=== PATIENT | female | born 1945 | race Caucasian/White ===

== ENCOUNTER → 2016-03-25 | Outpatient (CLI) | payer BC ==
[~2016-03-25] MED LIST: /PANT40TA PO; AMLO10TA; ASPI81TA63; AVAP150T; CALCIUM LACTATE; CETIRIZINE PO; CHLO125TA PO; CLON1PA TOP; DARV100T; ESTRTAB6; FIBEPOW11 PO; LOPR50TA PO; MAGNESIUM OXIDE; PREMARIVAG VAGINALLY; THERGRAN; TOPI25TA2; TYLE325T5 PO; TYLE650T25 PO; VITAMIN B COMPLE1
--- NOTE | 2016-03-25 14:45 | REP ---
Chest two views HISTORY: Cough Comparison: 12/26/2013 The lungs are clear. The heart is normal in size. The pulmonary vasculature is normal in appearance. The bony structure is intact. IMPRESSION: No acute disease. Signed by Vinicio Carter MD 03/25/2016 02:36 P
[2016-03-25 20:45] LABS: BASO % 0.2 % (0.0-1.0); EOS # 0.2 K/mm3 (0.0-0.50); EOS % 3.5 % (0.0-3.0); LARGE UNSTAINED CELL # 0.1 K/mm3 (0.0-0.4); LARGE UNSTAINED CELL % 1.9 % (0.0-4.0); LYMPH # 1.7 K/mm3 (1.5-4.5); LYMPH % 28.5 % (24.0-44.0); MEAN CORPUSCULAR HEMOGLOBIN 31.9 pg (27.0-33.0); MEAN CORPUSCULAR HGB CONC 34.6 g/dl (32.0-36.5); MEAN CORPUSCULAR VOLUME 92.1 fl (80.0-96.0); MONO # 0.3 K/mm3 (0.0-0.8); NEUTROPHILS # 3.7 K/mm3 (1.8-7.7); PLATELET COUNT, AUTOMATED 232 k/mm3 (150-450); RED CELL DISTRIBUTION WIDTH 12.1 % (11.5-14.5); WHITE BLOOD COUNT 6.1 K/mm3 (4.0-10.0)
[2016-03-25 21:12] LABS: BILIRUBIN,TOTAL 0.6 MG/DL (0.2-1.0); CREATININE FOR GFR 1.06 MG/DL (0.55-1.02); GLOMERULAR FILTRATION RATE 54.6 (>39); POTASSIUM SERUM 4.2 MEQ/L (3.5-5.1)
== END ==
LOC: M ADAMS 14:08
PROVIDERS: ATTEND Physician Assistant
DX: R05 Cough (principal); J18.1 Lobar pneumonia, unspecified organism

== ENCOUNTER 2016-03-26 09:27 | Emergency (ER) | payer BC ==
--- NOTE | 2016-03-26 10:19 | EDDOCDS ---
Physician Documentation [facility] Name: Elizabeth Thibodeaux Age: 71 yrs Sex: Female : 1945 Arrival Date: 03/26/2016 Time: 09:27 Bed TR7 Private MD: Beto Partida MD Disposition: 03/26/16 10:07 Discharged to Home/Self Care. Impression: Acute upper respiratory infections of multiple and unspecified sites. - Condition is Stable. - Discharge Instructions: Cool Mist Vaporizers, Upper Respiratory Infection, Adult, Rxit-kf-Tdpy, Viral Infections, Gqhw-Gw-Sinp. - Prescriptions for benzonatate 200 mg Oral Capsule - take 1 capsule by ORAL route 3 times per day As needed; 30 capsule. azelastine 137 mcg (0.1 %) Nasal Aerosol, [place] - spray 2 spray by INTRANASAL route 2 times per day each nostril; 1 bottle. - Medication Reconciliation, Local Pharmacy Hours form. - Follow up: Beto Partida; When: Call to arrange an appointment; Reason: Further diagnostic work-up, Recheck today's complaints, Continuance of care. - Problem is an ongoing problem. - Symptoms are unchanged. Historical: - Allergies: Doxycycline (Hives); Levaquin (Hives); antidepressants (Unknown); Aspirin (Hives); Lyrica (Swelling); NSAIDS (Hives); Prednisone (rapid heart beat); antibioticsmost (Hives); Singulair (rapid heart beat); Qyimbto-Kow-Iok Reductase Inhibitors (leg cramps); - Home Meds: 1. Calcium + Vitamin D 600 mg calcium- 200 unit Oral tab 2 tab twice a day (Last dose: 03/25/2016) 2. cetirizine 10 mg oral tab 1 tab once daily seasonal 3. chlorthalidone 6.25 mg Oral tab 1 tab once daily (Last dose: 03/25/2016) 4. diphenhydramine HCl 25 mg Oral tab 1 tab 4 times per day as needed (Last dose: 03/26/2016 07:30) 5. irbesartan 300 mg oral tab 1 tab once daily (Last dose: 03/25/2016) 6. magnesium oxide 400 mg Oral cap twice a day (Last dose: 03/25/2016) 7. metoprolol tartrate 25 mg Oral tab 1 tab 2 times per day (Last dose: 03/25/2016) 8. Probiotic 100 billion oral daily (Last dose: 03/25/2016) 9. pantoprazole 40 mg oral TbEC 1 tab once daily (Last dose: 03/25/2016) 10. ProAir HFA 90 mcg/actuation inhalation HFAA 1 puff every 4 hours as needed (Last dose: 03/26/2016 05:00) - PMHx: Arthritis; Asthma; Fibromyalgia; GERD; Hypertension; pinched nerves in neck and back; Colitis; - PSHx: Lumpectomy- Left; Cholecystectomy; - Social history: Smoking status: Patient states former smoker of tobacco. No barriers to communication noted, The patient speaks fluent Cuban. - Family history: Not pertinent. - : The pt / caregiver states he / she is not on anticoagulants. Home medication list is obtained from the patient. - Exposure Risk Screening:: None identified. Vital Signs: 03/26 09:29 BP 153 / 73; Pulse 70; Resp 16; Temp 97.9; Pulse Ox 100% ; Weight 95.71 kg / 211 lbs; elp Height 5 ft. 5 in. (165.10 cm); Pain 4/10; 09:29 Body Mass Index 35.11 (95.71 kg, 165.10 cm) elp MDM: 10:00 Financial registration complete. lg Signatures: Jason Carter RN Susanna Moise RN RN Anahy Hunt, Jesus Reg lg Mayank Gonsalez PA PA btw MTDD
--- NOTE | 2016-03-26 10:19 | EDDOCDS ---
Nurse's Notes [facility] Name: Elizabeth Thibodeaux Age: 71 yrs Sex: Female : 1945 Arrival Date: 03/26/2016 Time: 09:27 Bed TR7 Private MD: Beto Partida MD Diagnosis: Acute upper respiratory infections of multiple and unspecified sites Presentation: 03/26 09:35 Presenting complaint: Patient states: seen at urgent care 1 week ago put on [facility] doxycycline, had rash stopped the doxycycline. went back to urgent care yesterday cxr done question of pneumonia ,put on levaquin last night had rapid heart rate and hives , resolved with benadryl, here today because needs treatment for ? pneumonia and i allergic to most antibiotics. Onset: The symptoms/episode began/occurred yesterday. The patient has a history of a previous allergic reaction. hives. Anaphylaxis evaluation, the patient reports or I have noted the following symptoms which indicate a significant risk of anaphylaxis: no signs or symptoms of anaphylaxis were noted. Adult Sepsis Screening: The patient does not have new or worsening altered mentation. Patient's respiratory rate is less than 22. Systolic blood pressure is greater than 100. Patient has a qSOFA score of 0- Negative Sepsis Screen. Suicide/Homicide risk assessment- the patient denies having any suicidal and/or homicidal ideations and does not present with any other emotional, behavioral or mental health complaints. Status: Patient is not a volunteer services director or dependent. Transition of care: patient was not received from another setting of care. 09:35 Acuity: GILMER Level 3 [facility] 09:35 Method Of Arrival: Walkin/Carried/Asstd [facility] Triage Assessment: 09:45 General: Appears in no apparent distress, Behavior is appropriate for age, pleasant. [facility] Pain: Location: chest Aggravated by cough. Neurological: Level of Consciousness is awake, alert, Oriented to person, place, time. EENT: Reports nasal congestion. Cardiovascular: Chest pain is denied. Respiratory: Reports cough that is non-productive, pain with cough Pain is 4 out of 10 on a pain scale. Derm: Skin is pink, warm & dry. Musculoskeletal: No deficits noted. Historical: - Allergies: Doxycycline (Hives); Levaquin (Hives); antidepressants (Unknown); Aspirin (Hives); Lyrica (Swelling); NSAIDS (Hives); Prednisone (rapid heart beat); antibioticsmost (Hives); Singulair (rapid heart beat); Egszcbt-Yrd-Xtj Reductase Inhibitors (leg cramps); - Home Meds: 1. Calcium + Vitamin D 600 mg calcium- 200 unit Oral tab 2 tab twice a day (Last dose: 03/25/2016) 2. cetirizine 10 mg oral tab 1 tab once daily seasonal 3. chlorthalidone 6.25 mg Oral tab 1 tab once daily (Last dose: 03/25/2016) 4. diphenhydramine HCl 25 mg Oral tab 1 tab 4 times per day as needed (Last dose: 03/26/2016 07:30) 5. irbesartan 300 mg oral tab 1 tab once daily (Last dose: 03/25/2016) 6. magnesium oxide 400 mg Oral cap twice a day (Last dose: 03/25/2016) 7. metoprolol tartrate 25 mg Oral tab 1 tab 2 times per day (Last dose: 03/25/2016) 8. Probiotic 100 billion oral daily (Last dose: 03/25/2016) 9. pantoprazole 40 mg oral TbEC 1 tab once daily (Last dose: 03/25/2016) 10. ProAir HFA 90 mcg/actuation inhalation HFAA 1 puff every 4 hours as needed (Last dose: 03/26/2016 05:00) - PMHx: Arthritis; Asthma; Fibromyalgia; GERD; Hypertension; pinched nerves in neck and back; Colitis; - PSHx: Lumpectomy- Left; Cholecystectomy; - Social history: Smoking status: Patient states former smoker of tobacco. No barriers to communication noted, The patient speaks fluent Khmer. - Family history: Not pertinent. - : The pt / caregiver states he / she is not on anticoagulants. Home medication list is obtained from the patient. - Exposure Risk Screening:: None identified. Screenin:16 Screening information is obtained from the patient. Fall risk: No risks identified. dwg Assistance ADL's: requires no assistance with activities of daily living. Abuse/DV Screen: The patient / caregiver reports he/she is: not in a situation that causes fear, pain or injury. Nutritional screening: No deficits noted. Advance Directives: Currently, there is no health care proxy. There is no active DNR order. There is no living will. There is no Power of Experimental Machinist. Advance directive information has not previously been placed in an [facility] medical record. Further advance directive information is declined. home support is adequate. Assessment: 10:15 The patient / caregiver is instructed regarding the plan of care and ED course. dwg Physical assessment to be completed by RADHA/JUAN. Vital Signs: 09:29 BP 153 / 73; Pulse 70; Resp 16; Temp 97.9; Pulse Ox 100% ; Weight 95.71 kg; Height 5 elp ft. 5 in. (165.10 cm); Pain 4/10; 09:29 Body Mass Index 35.11 (95.71 kg, 165.10 cm) elp Vitals: 09:29 Log In Time N/A - ambulance arrival. elp ED Course: 09:28 Patient visited by Yasmin Matthews PCA. elp 09:28 Patient moved to Waiting elp 09:29 Beto Partida is Private Physician. elp 09:31 Patient visited by Yasmin Matthews PCA. elp 09:31 Patient moved to Pre RCE elp 09:39 Triage Initiated kpj 09:42 Mayank Gonsalez PA is [facility]. btw 09:42 Deepthi Emery MD is Attending Physician. btw 09:47 Patient visited by Mayank Gonsalez PA. btw 09:47 Patient moved to Triage 1 kpj 10:07 Beto Partida is Referral Physician. btw 10:11 Patient moved to TR7 srm 10:18 Patient has correct armband on for positive identification. Adult w/ patient. dwg 10:18 No IV's were initiated during this patient's visit. No procedures done that require dwg assistance. Order Results: There are currently no results for this order. Outcome: 10:07 Discharge ordered by Provider. btw 10:17 Discharge Assessment: Patient awake, alert and oriented x 3. No cognitive and/or dwg functional deficits noted. Patient verbalized understanding of disposition instructions. patient administered narcotics - no. The following High Risk Discharge criteria are identified: None. Discharged to home ambulatory, with family. Condition: good Condition: stable. No special radiology studies were completed. Property sent home with patient. 10:18 Patient left the ED. dwg Signatures: Jason Carter, RN RN dwg Jobson, Susanna, RN RN kpj Carlos, Damaris, RN RN srm Mayank Gonsalez PA PA btw Byron, Yasmin, LEDY CARDIOVASCULAR INVASIVE SPECIALIST elp MTDD
--- NOTE | 2016-03-28 11:19 | EDDOCDS ---
Physician Documentation [facility] Name: Elizabeth Thibodeaux Age: 71 yrs Sex: Female : 1945 Arrival Date: 03/26/2016 Time: 09:27 Bed TR7 Private MD: Beto Partida MD Disposition: 03/26/16 10:07 Discharged to Home/Self Care. Impression: Acute upper respiratory infections of multiple and unspecified sites. - Condition is Stable. - Discharge Instructions: Cool Mist Vaporizers, Upper Respiratory Infection, Adult, Qnex-bt-Wtkn, Viral Infections, Wncn-Ux-Goiq. - Prescriptions for benzonatate 200 mg Oral Capsule - take 1 capsule by ORAL route 3 times per day As needed; 30 capsule. azelastine 137 mcg (0.1 %) Nasal Aerosol, [place] - spray 2 spray by INTRANASAL route 2 times per day each nostril; 1 bottle. - Medication Reconciliation, Local Pharmacy Hours form. - Follow up: Beto Partida; When: Call to arrange an appointment; Reason: Further diagnostic work-up, Recheck today's complaints, Continuance of care. - Problem is an ongoing problem. - Symptoms are unchanged. Historical: - Allergies: Doxycycline (Hives); Levaquin (Hives); antidepressants (Unknown); Aspirin (Hives); Lyrica (Swelling); NSAIDS (Hives); Prednisone (rapid heart beat); antibioticsmost (Hives); Singulair (rapid heart beat); Utgtxvo-Xnu-Put Reductase Inhibitors (leg cramps); - Home Meds: 1. Calcium + Vitamin D 600 mg calcium- 200 unit Oral tab 2 tab twice a day (Last dose: 03/25/2016) 2. cetirizine 10 mg oral tab 1 tab once daily seasonal 3. chlorthalidone 6.25 mg Oral tab 1 tab once daily (Last dose: 03/25/2016) 4. diphenhydramine HCl 25 mg Oral tab 1 tab 4 times per day as needed (Last dose: 03/26/2016 07:30) 5. irbesartan 300 mg oral tab 1 tab once daily (Last dose: 03/25/2016) 6. magnesium oxide 400 mg Oral cap twice a day (Last dose: 03/25/2016) 7. metoprolol tartrate 25 mg Oral tab 1 tab 2 times per day (Last dose: 03/25/2016) 8. Probiotic 100 billion oral daily (Last dose: 03/25/2016) 9. pantoprazole 40 mg oral TbEC 1 tab once daily (Last dose: 03/25/2016) 10. ProAir HFA 90 mcg/actuation inhalation HFAA 1 puff every 4 hours as needed (Last dose: 03/26/2016 05:00) - PMHx: Arthritis; Asthma; Fibromyalgia; GERD; Hypertension; pinched nerves in neck and back; Colitis; - PSHx: Lumpectomy- Left; Cholecystectomy; - Social history: Smoking status: Patient states former smoker of tobacco. No barriers to communication noted, The patient speaks fluent Surinamese. - Family history: Not pertinent. - : The pt / caregiver states he / she is not on anticoagulants. Home medication list is obtained from the patient. - Exposure Risk Screening:: None identified. Vital Signs: 03/26 09:29 BP 153 / 73; Pulse 70; Resp 16; Temp 97.9; Pulse Ox 100% ; Weight 95.71 kg / 211 lbs; elp Height 5 ft. 5 in. (165.10 cm); Pain 4/10; 09:29 Body Mass Index 35.11 (95.71 kg, 165.10 cm) elp MDM: 10:00 Financial registration complete. lg 10:59 [facility] Payment Agreement was scanned into [employer] and attached to record. lg 14:36 T-Sheet-- Draft Copy was scanned into [employer] and attached to record. gb Signatures: Jason Carter RN RN Susanna Sales RN RN kpj Barnhardt, Gloria, Reg Reg gb Anahy Gonzalez, Reg Reg lg Mayank Gonsalez PA PA btw The chart was reviewed and I authenticate all verbal orders and agree with the evaluation and treatment provided.Attachments: 10:59 [facility] Payment Agreement lg 14:36 T-Sheet-- Draft Copy gb Chart Complete MTDD
--- NOTE | 2016-03-28 11:19 | EDDOCDS ---
Nurse's Notes [facility] Name: Elizabeth Thibodeaux Age: 71 yrs Sex: Female : 1945 Arrival Date: 03/26/2016 Time: 09:27 Bed TR7 Private MD: Beto Partida MD Diagnosis: Acute upper respiratory infections of multiple and unspecified sites Presentation: 03/26 09:35 Presenting complaint: Patient states: seen at urgent care 1 week ago put on [facility] doxycycline, had rash stopped the doxycycline. went back to urgent care yesterday cxr done question of pneumonia ,put on levaquin last night had rapid heart rate and hives , resolved with benadryl, here today because needs treatment for ? pneumonia and i allergic to most antibiotics. Onset: The symptoms/episode began/occurred yesterday. The patient has a history of a previous allergic reaction. hives. Anaphylaxis evaluation, the patient reports or I have noted the following symptoms which indicate a significant risk of anaphylaxis: no signs or symptoms of anaphylaxis were noted. Adult Sepsis Screening: The patient does not have new or worsening altered mentation. Patient's respiratory rate is less than 22. Systolic blood pressure is greater than 100. Patient has a qSOFA score of 0- Negative Sepsis Screen. Suicide/Homicide risk assessment- the patient denies having any suicidal and/or homicidal ideations and does not present with any other emotional, behavioral or mental health complaints. Status: Patient is not a hr shared services consultant or dependent. Transition of care: patient was not received from another setting of care. 09:35 Acuity: GILMER Level 3 [facility] 09:35 Method Of Arrival: Walkin/Carried/Asstd [facility] Triage Assessment: 09:45 General: Appears in no apparent distress, Behavior is appropriate for age, pleasant. [facility] Pain: Location: chest Aggravated by cough. Neurological: Level of Consciousness is awake, alert, Oriented to person, place, time. EENT: Reports nasal congestion. Cardiovascular: Chest pain is denied. Respiratory: Reports cough that is non-productive, pain with cough Pain is 4 out of 10 on a pain scale. Derm: Skin is pink, warm & dry. Musculoskeletal: No deficits noted. Historical: - Allergies: Doxycycline (Hives); Levaquin (Hives); antidepressants (Unknown); Aspirin (Hives); Lyrica (Swelling); NSAIDS (Hives); Prednisone (rapid heart beat); antibioticsmost (Hives); Singulair (rapid heart beat); Qrctqea-Sda-Cer Reductase Inhibitors (leg cramps); - Home Meds: 1. Calcium + Vitamin D 600 mg calcium- 200 unit Oral tab 2 tab twice a day (Last dose: 03/25/2016) 2. cetirizine 10 mg oral tab 1 tab once daily seasonal 3. chlorthalidone 6.25 mg Oral tab 1 tab once daily (Last dose: 03/25/2016) 4. diphenhydramine HCl 25 mg Oral tab 1 tab 4 times per day as needed (Last dose: 03/26/2016 07:30) 5. irbesartan 300 mg oral tab 1 tab once daily (Last dose: 03/25/2016) 6. magnesium oxide 400 mg Oral cap twice a day (Last dose: 03/25/2016) 7. metoprolol tartrate 25 mg Oral tab 1 tab 2 times per day (Last dose: 03/25/2016) 8. Probiotic 100 billion oral daily (Last dose: 03/25/2016) 9. pantoprazole 40 mg oral TbEC 1 tab once daily (Last dose: 03/25/2016) 10. ProAir HFA 90 mcg/actuation inhalation HFAA 1 puff every 4 hours as needed (Last dose: 03/26/2016 05:00) - PMHx: Arthritis; Asthma; Fibromyalgia; GERD; Hypertension; pinched nerves in neck and back; Colitis; - PSHx: Lumpectomy- Left; Cholecystectomy; - Social history: Smoking status: Patient states former smoker of tobacco. No barriers to communication noted, The patient speaks fluent Mongolian. - Family history: Not pertinent. - : The pt / caregiver states he / she is not on anticoagulants. Home medication list is obtained from the patient. - Exposure Risk Screening:: None identified. Screenin:16 Screening information is obtained from the patient. Fall risk: No risks identified. dwg Assistance ADL's: requires no assistance with activities of daily living. Abuse/DV Screen: The patient / caregiver reports he/she is: not in a situation that causes fear, pain or injury. Nutritional screening: No deficits noted. Advance Directives: Currently, there is no health care proxy. There is no active DNR order. There is no living will. There is no Power of Processing Manager. Advance directive information has not previously been placed in an [facility] medical record. Further advance directive information is declined. home support is adequate. Assessment: 10:15 The patient / caregiver is instructed regarding the plan of care and ED course. dwg Physical assessment to be completed by RADHA/JUAN. Vital Signs: 09:29 BP 153 / 73; Pulse 70; Resp 16; Temp 97.9; Pulse Ox 100% ; Weight 95.71 kg; Height 5 elp ft. 5 in. (165.10 cm); Pain 4/10; 09:29 Body Mass Index 35.11 (95.71 kg, 165.10 cm) elp Vitals: 09:29 Log In Time N/A - ambulance arrival. elp ED Course: 09:28 Patient visited by Yasmin Matthews PCA. elp 09:28 Patient moved to Waiting elp 09:29 Beto Partida is Private Physician. elp 09:31 Patient visited by Yasmin Matthews PCA. elp 09:31 Patient moved to Pre RCE elp 09:39 Triage Initiated kp 09:42 [facility] btw 09:42 Deepthi Emery MD is Attending Physician. btw 09:47 Patient visited by Mayank Gonsalez PA. btw 09:47 Patient moved to Triage 1 kpj 10:07 Beto Partida is Referral Physician. btw 10:11 Patient moved to TR7 srm 10:18 Patient has correct armband on for positive identification. Adult w/ patient. dwg 10:18 No IV's were initiated during this patient's visit. No procedures done that require dwg assistance. 10:59 [facility] Payment Agreement was scanned into [employer] and attached to record. lg 14:36 T-Sheet-- Draft Copy was scanned into [employer] and attached to record. gb Order Results: There are currently no results for this order. Outcome: 10:07 Discharge ordered by Provider. btw 10:17 Discharge Assessment: Patient awake, alert and oriented x 3. No cognitive and/or dwg functional deficits noted. Patient verbalized understanding of disposition instructions. patient administered narcotics - no. The following High Risk Discharge criteria are identified: None. Discharged to home ambulatory, with family. Condition: good Condition: stable. No special radiology studies were completed. Property sent home with patient. 10:18 Patient left the ED. [facility] Signatures: Jason Carter RN RN Susanna Morel RN RN kpj Michelson, Staci, RN RN [facility] [place], Ivon, Reg Reg gb Ganmary carmen, Anahy, Reg Reg lg Mayank Gonsalez PA PA btw Yasmin Matthews, LEDY INSOLE BUFFER elp Chart Complete MTDD
--- NOTE | 2016-03-28 11:19 | EDDOCDS ---
Physician Documentation [facility] Name: Elizabeth Thibodeaux Age: 71 yrs Sex: Female : 1945 Arrival Date: 03/26/2016 Time: 09:27 Bed TR7 Private MD: Beto Partida MD Disposition: 03/26/16 10:07 Discharged to Home/Self Care. Impression: Acute upper respiratory infections of multiple and unspecified sites. - Condition is Stable. - Discharge Instructions: Cool Mist Vaporizers, Upper Respiratory Infection, Adult, Yibu-gc-Hgdv, Viral Infections, Erzf-Xx-Buab. - Prescriptions for benzonatate 200 mg Oral Capsule - take 1 capsule by ORAL route 3 times per day As needed; 30 capsule. azelastine 137 mcg (0.1 %) Nasal Aerosol, [place] - spray 2 spray by INTRANASAL route 2 times per day each nostril; 1 bottle. - Medication Reconciliation, Local Pharmacy Hours form. - Follow up: Beto Partida; When: Call to arrange an appointment; Reason: Further diagnostic work-up, Recheck today's complaints, Continuance of care. - Problem is an ongoing problem. - Symptoms are unchanged. Historical: - Allergies: Doxycycline (Hives); Levaquin (Hives); antidepressants (Unknown); Aspirin (Hives); Lyrica (Swelling); NSAIDS (Hives); Prednisone (rapid heart beat); antibioticsmost (Hives); Singulair (rapid heart beat); Adojruc-Iqb-Hmm Reductase Inhibitors (leg cramps); - Home Meds: 1. Calcium + Vitamin D 600 mg calcium- 200 unit Oral tab 2 tab twice a day (Last dose: 03/25/2016) 2. cetirizine 10 mg oral tab 1 tab once daily seasonal 3. chlorthalidone 6.25 mg Oral tab 1 tab once daily (Last dose: 03/25/2016) 4. diphenhydramine HCl 25 mg Oral tab 1 tab 4 times per day as needed (Last dose: 03/26/2016 07:30) 5. irbesartan 300 mg oral tab 1 tab once daily (Last dose: 03/25/2016) 6. magnesium oxide 400 mg Oral cap twice a day (Last dose: 03/25/2016) 7. metoprolol tartrate 25 mg Oral tab 1 tab 2 times per day (Last dose: 03/25/2016) 8. Probiotic 100 billion oral daily (Last dose: 03/25/2016) 9. pantoprazole 40 mg oral TbEC 1 tab once daily (Last dose: 03/25/2016) 10. ProAir HFA 90 mcg/actuation inhalation HFAA 1 puff every 4 hours as needed (Last dose: 03/26/2016 05:00) - PMHx: Arthritis; Asthma; Fibromyalgia; GERD; Hypertension; pinched nerves in neck and back; Colitis; - PSHx: Lumpectomy- Left; Cholecystectomy; - Social history: Smoking status: Patient states former smoker of tobacco. No barriers to communication noted, The patient speaks fluent Cape Verdean. - Family history: Not pertinent. - : The pt / caregiver states he / she is not on anticoagulants. Home medication list is obtained from the patient. - Exposure Risk Screening:: None identified. Vital Signs: 03/26 09:29 BP 153 / 73; Pulse 70; Resp 16; Temp 97.9; Pulse Ox 100% ; Weight 95.71 kg / 211 lbs; elp Height 5 ft. 5 in. (165.10 cm); Pain 4/10; 09:29 Body Mass Index 35.11 (95.71 kg, 165.10 cm) elp MDM: 10:00 Financial registration complete. lg 10:59 [facility] Payment Agreement was scanned into [employer] and attached to record. lg 14:36 T-Sheet-- Draft Copy was scanned into [employer] and attached to record. gb Signatures: Jason Carter RN RN Susanna Sales RN RN kpj Barnhardt, Gloria, Reg Reg gb Anahy Gonzalez, Reg Reg lg Mayank Gonsalez PA PA btw The chart was reviewed and I authenticate all verbal orders and agree with the evaluation and treatment provided.Attachments: 10:59 [facility] Payment Agreement lg 14:36 T-Sheet-- Draft Copy gb Chart Complete MTDD
== END 2016-03-26 10:18 | disposition home or self-care (01) ==
LOC: M ED 09:27
DX: J06.9 Acute upper respiratory infection, unspecified (principal); I10 Essential (primary) hypertension; J45.909 Unspecified asthma, uncomplicated; M19.90 Unspecified osteoarthritis, unspecified site; M79.7 Fibromyalgia; K21.9 Gastro-esophageal reflux disease without esophagitis; M54.12 Radiculopathy, cervical region; M54.16 Radiculopathy, lumbar region; Z79.899 Other long term (current) drug therapy; Z88.1 Allergy status to other antibiotic agents; Z88.8 Allergy status to other drugs, medicaments and biological substances; Z88.6 Allergy status to analgesic agent

== ENCOUNTER → 2016-04-29 | Outpatient (REF) | payer BC ==
[2016-04-30 12:05] LABS: ALBUMIN 4.67 GM/DL (3.29-5.55); ALBUMIN % 58.4 % (55.8-66.1)
== END ==
LOC: M LAB REF 17:06
PROVIDERS: ATTEND Internal Medicine Medical Oncology
DX: D47.2 Monoclonal gammopathy (principal)

== ENCOUNTER → 2016-06-19 | Outpatient (CLI) | payer BC ==
--- NOTE | 2016-06-19 15:33 | REPMRS ---
Patient History The patient states she had a clinical breast exam in 06/15 Patient is postmenopausal and is nulliparous. No known family history of cancer. Benign excisional biopsy of the left breast. Digital Woman Screen Mammo: June 19, 2016 - Exam #: [id number] Bilateral CC and MLO view(s) were taken. Technologist: Inna Lauren, Technologist Prior study comparison: November 07, 2013, right breast digital mammo diagnostic unilateral, performed at [facility]. October 24, 2013, digital woman screen mammo performed at [facility]. February 03, 2012, digital woman screen mammo performed at [facility]. FINDINGS: There are scattered fibroglandular densities. There has been no change in the appearance of the mammogram from the prior studies. There is a mild amount of scattered fibroglandular density which is fairly symmetric. There is no interval development of dominant mass, architectural distortion, or clustered microcalcification suggestive of malignancy. ASSESSMENT: BI-RADS/ACR category 1 mammogram. Negative. Recommendation Routine screening mammogram in 1 year (for women over age 40). This mammogram was interpreted with the aid of an FDA-approved computer-aided dectection system. Electronically Signed By: Lavelle Zambrano MD 06/19/16 [id number]
== END ==
LOC: M WHC 13:30
PROVIDERS: ATTEND Nurse Practitioner Family
DX: Z12.31 Encounter for screening mammogram for malignant neoplasm of breast (principal); Z78.0 Asymptomatic menopausal state; Z92.89 Personal history of other medical treatment

== ENCOUNTER → 2016-06-26 | Outpatient (CLI) | payer BC ==
--- NOTE | 2016-06-26 13:47 | REP ---
LEFT ANKLE, FOUR VIEWS: HISTORY: Pain. There is no acute fracture or dislocation. The joint space is normal in appearance. Soft tissue swelling is present. IMPRESSION: There is no acute fracture or dislocation. Signed by Vinicio Carter MD 06/26/2016 01:52 P
== END ==
LOC: M ADAMS 13:15
PROVIDERS: ATTEND Family Medicine
DX: M25.572 Pain in left ankle and joints of left foot (principal)

== ENCOUNTER → 2016-09-29 | Outpatient (REF) | payer BC ==
[2016-09-29 12:45] LABS: MEAN CORPUSCULAR HEMOGLOBIN 32.4 pg (27.0-33.0); MEAN CORPUSCULAR HGB CONC 33.5 g/dl (32.0-36.5); MEAN CORPUSCULAR VOLUME 96.7 fl (80.0-96.0); RED CELL DISTRIBUTION WIDTH 12.7 % (11.5-14.5); WHITE BLOOD COUNT 5.7 K/mm3 (4.0-10.0)
[2016-09-29 12:54] LABS: ALBUMIN 3.8 GM/DL (3.2-5.2); ALBUMIN/GLOBULIN RATIO 1.15 (1.00-1.93); BILIRUBIN,TOTAL 0.8 MG/DL (0.2-1.0); CALCIUM LEVEL 9.5 MG/DL (8.8-10.2); CREATININE FOR GFR 1.17 MG/DL (0.55-1.02); GLOMERULAR FILTRATION RATE 48.7 (>39); POTASSIUM SERUM 4.4 MEQ/L (3.5-5.1); TOTAL PROTEIN 7.1 GM/DL (6.4-8.2)
== END ==
LOC: M SFHCADAM 09:57
PROVIDERS: ATTEND Family Medicine
DX: F43.21 Adjustment disorder with depressed mood (principal); I11.9 Hypertensive heart disease without heart failure; E78.4 Other hyperlipidemia

== ENCOUNTER → 2016-11-05 | Outpatient (CLI) | payer BC ==
--- NOTE | 2016-11-05 15:33 | REP ---
Clinical: Pain and swelling . Technique: Balderrama scale and color Doppler evaluation using linear high frequency transducer. Findings: Ultrasound examination of the left lower extremity deep venous structures from the common femoral vein to the popliteal vein demonstrates normal compressibility flow and wave patterns in response to respiration and augmentation. There is no evidence for deep venous thrombosis. Impression: No evidence for deep venous thrombosis. Signed by Robby Norton MD 11/05/2016 03:24 P
== END ==
LOC: M RAD 15:02
PROVIDERS: ATTEND Family Medicine
DX: M79.89 Other specified soft tissue disorders (principal); M79.662 Pain in left lower leg

== ENCOUNTER → 2017-01-18 | Outpatient (REF) | payer BC ==
[~2017-01-18] MED LIST changes: +Holter Monitor
[2017-01-18 22:08] LABS: MEAN CORPUSCULAR HGB CONC 33.9 g/dl (32.0-36.5); MEAN CORPUSCULAR VOLUME 91.3 fl (80.0-96.0); PLATELET COUNT, AUTOMATED 228 10^3/uL (150-450); RED CELL DISTRIBUTION WIDTH 11.9 % (11.5-14.5)
[2017-01-18 22:32] LABS: ALBUMIN 4.3 GM/DL (3.2-5.2); ALBUMIN/GLOBULIN RATIO 1.43 (1.00-1.93); ALKALINE PHOSPHATASE 78 U/L (45-117); ALT/SGPT 41 U/L (12-78); ANION GAP 5 MEQ/L (8-16); AST/SGOT 30 U/L (7-37); BLOOD UREA NITROGEN 10 MG/DL (7-18); CALCIUM LEVEL 9.6 MG/DL (8.8-10.2); CARBON DIOXIDE LEVEL 33 MEQ/L (21-32); CHLORIDE LEVEL 93 MEQ/L (98-107); CREATININE FOR GFR 1.54 MG/DL (0.55-1.02); GLOMERULAR FILTRATION RATE 35.4 (>39); GLUCOSE, FASTING 77 MG/DL (83-110); MAGNESIUM LEVEL 2.1 MG/DL (1.8-2.4); SODIUM LEVEL 131 MEQ/L (136-145); TOTAL PROTEIN 7.3 GM/DL (6.4-8.2)
[2017-01-18 22:35] LABS: ERYTHROCYTE SEDIMENTATION RATE 8 mm/hr (0-30)
[2017-01-19 10:19] LABS: VITAMIN B12 LEVEL 1327 PG/ML (247-911)
[2017-01-23 14:10] LABS: F002-IgE Milk < 0.10 kU/L (Class 0); F004-IgE Wheat 0.12 kU/L (Class 0/I); F013-IgE Peanut < 0.10 kU/L (Class 0); F014-IgE Soybean < 0.10 kU/L (Class 0); F026-IgE Pork < 0.10 kU/L (Class 0); F027-IgE Beef < 0.10 kU/L (Class 0); F245-IgE Egg, Whole < 0.10 kU/L (Class 0); FX02-IgE Food Mix (Sea Foods) Negative (.)
== END ==
LOC: M LAB REF 10:04
PROVIDERS: ATTEND Internal Medicine Gastroenterology
DX: R10.12 Left upper quadrant pain (principal); R10.84 Generalized abdominal pain; K44.9 Diaphragmatic hernia without obstruction or gangrene; K31.84 Gastroparesis; K29.70 Gastritis, unspecified, without bleeding; R11.2 Nausea with vomiting, unspecified; K52.9 Noninfective gastroenteritis and colitis, unspecified; E55.9 Vitamin D deficiency, unspecified

== ENCOUNTER 2017-01-19 15:49 | Emergency (ER) | payer BC ==
[~2017-01-19] VITALS: Ht 162.6 cm; Wt 93.2 kg
[~2017-01-19 15:49] MED LIST changes: -Holter Monitor
[2017-01-19 17:27] LABS: MAGNESIUM LEVEL 2.1 MG/DL (1.8-2.4)
[2017-01-19] MEDS ORDERED: Holter Monitor (18:02)
[2017-01-19 18:07] VITALS: BP 115/64
--- NOTE | 2017-01-20 09:29 | ECGEPIP ---
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
== END 2017-01-19 18:23 | disposition home or self-care (01) ==
LOC: EDBD 15:49 → M ED 15:49
DX: R55 Syncope and collapse (principal); R00.1 Bradycardia, unspecified; M79.7 Fibromyalgia; G47.33 Obstructive sleep apnea (adult) (pediatric); K58.9 Irritable bowel syndrome, unspecified; N18.3 Chronic kidney disease, stage 3 (moderate); F95.9 Tic disorder, unspecified; Z88.8 Allergy status to other drugs, medicaments and biological substances; Z88.0 Allergy status to penicillin; Z88.1 Allergy status to other antibiotic agents; Z88.6 Allergy status to analgesic agent; Z88.2 Allergy status to sulfonamides; Z79.899 Other long term (current) drug therapy

== ENCOUNTER → 2017-02-17 | Outpatient (CLI) | payer BC ==
[~2017-02-17] MED LIST changes: +Holter Monitor
--- NOTE | 2017-02-18 06:52 | REP ---
PET/CT: HISTORY: Nodule left lower lobe of the lung. COMPARISONS: Comparison CT study [facility] dated February 08, 2017. The nodule measured 1.2 cm in greatest diameter. TECHNIQUE: 1 hour 28 minutes following the intravenous injection of a 10.5 mCi dose of F-18 FDG, three-dimensional PET scintigraphy is acquired from the skull base to the proximal thighs. Triplanar noncontrast CT scanning is acquired through the same anatomic range for attenuation correction, and image registration with scan parameters optimized to minimize radiation exposure to the patient. PET scintigraphy and CT datasets were fused and displayed on a workstation with multiplanar and projection display capability. PET/CT FINDINGS: The peripheral pleural-based nodule in the left lower lobe shows hypermetabolic uptake on today's PET scintigraphy. Maximum standard uptake value is 5.6. No other abnormal hypermetabolic uptake is seen in the thorax. Head and neck soft tissues are unremarkable. In the abdomen and pelvis there is normal hepatic, splenic, gastrointestinal and genitourinary FDG accumulation. No adrenal abnormality is seen. The gallbladder is surgically absent. No abnormal abdominal or pelvic hypermetabolic uptake is seen. IMPRESSION: The left lower lobe lung nodule is hypermetabolic. This must be considered suspicious for a lung malignancy. No other abnormal hypermetabolic uptake is seen. Signed by Peter Zambrano MD 02/18/2017 08:11 A
== END ==
LOC: M PLARAD 11:26
PROVIDERS: ATTEND Internal Medicine Gastroenterology
DX: R91.8 Other nonspecific abnormal finding of lung field (principal); Z88.8 Allergy status to other drugs, medicaments and biological substances
CPT/HCPCS: 78815; A9552

== ENCOUNTER → 2017-03-11 | Outpatient (REF) | payer BC ==
[2017-03-15 11:04] LABS: ALBUMIN 4.03 GM/DL (3.29-5.55); ALBUMIN % 57.6 % (55.8-66.1); ALPHA-1-GLOBULIN % 4.9 % (2.9-4.9); ALPHA-1-GLOBULINS 0.34 GM/DL (0.17-0.41); ALPHA-2-GLOBULINS 0.78 GM/DL (0.42-0.99); ALPHA-2-GLOBULINS % 11.1 % (7.1-11.8); BETA-1-GLOBULINS 0.44 GM/DL (0.28-0.60); BETA-1-GLOBULINS % 6.3 % (4.7-7.2); BETA-2-GLOBULINS % 5.7 % (3.2-6.5); GAMMA GLOBULIN % 14.4 % (11.1-18.8); GAMMA GLOBULINS 1.01 GM/DL (0.65-1.58)
== END ==
LOC: M LAB REF 18:18
DX: D47.2 Monoclonal gammopathy (principal)
CPT/HCPCS: 84165

== ENCOUNTER → 2017-03-18 | Outpatient (REF) | payer BC ==
[2017-03-18 19:37] LABS: HEMATOCRIT 36.5 % (36.0-47.0); MEAN CORPUSCULAR HEMOGLOBIN 32.3 pg (27.0-33.0); MEAN CORPUSCULAR HGB CONC 32.9 g/dl (32.0-36.5); MEAN CORPUSCULAR VOLUME 98.1 fl (80.0-96.0); PLATELET COUNT, AUTOMATED 225 10^3/uL (150-450); RED BLOOD COUNT 3.72 10^6/uL (4.00-5.40); RED CELL DISTRIBUTION WIDTH 13.2 % (11.5-14.5); WHITE BLOOD COUNT 6.8 10^3/uL (4.0-10.0)
[2017-03-18 19:50] LABS: ALBUMIN 3.9 GM/DL (3.2-5.2); ALBUMIN/GLOBULIN RATIO 1.11 (1.00-1.93); ALKALINE PHOSPHATASE 76 U/L (45-117); ALT/SGPT 25 U/L (12-78); AST/SGOT 22 U/L (7-37); BILIRUBIN,DIRECT 0.3 MG/DL (0.0-0.2); BILIRUBIN,TOTAL 1.2 MG/DL (0.2-1.0); LIPASE 279 U/L (73-393); TOTAL PROTEIN 7.4 GM/DL (6.4-8.2); TRIGLYCERIDES LEVEL 112 MG/DL (<150)
[2017-03-20 14:11] LABS: ANTINUCLEAR ANTIBODIES DIRECT Negative (Negative)
[2017-03-23 00:06] LABS: IgG SUBCLASS 4(ONLY) 35 mg/dL (2-96)
== END ==
LOC: M LABDRWAD 19:12
DX: R11.0 Nausea (principal); R10.84 Generalized abdominal pain
CPT/HCPCS: 83690

== ENCOUNTER → 2017-06-28 | Outpatient (REF) | payer BC ==
[2017-06-28 13:33] LABS: APPEARANCE, URINE CLEAR (CLEAR); BACTERIA, URINE AUTO NEGATIVE (NEGATIVE); BILIRUBIN, URINE AUTO NEGATIVE (NEGATIVE); BLOOD, URINE BLOOD NEGATIVE (NEGATIVE); COLOR, URINE YELLOW (YELLOW); GLUCOSE, URINE (UA) AUTO NEGATIVE (NEGATIVE); KETONE, URINE AUTO NEGATIVE (NEGATIVE); LEUKOCYTE ESTERASE, URINE AUTO NEGATIVE (NEGATIVE); NITRITE, URINE AUTO NEGATIVE (NEGATIVE); PROTEIN, URINE AUTO NEGATIVE (NEGATIVE); RBC, URINE AUTO 0 /HPF (0-3); SPECIFIC GRAVITY URINE AUTO 1.011 (1.002-1.035); SQUAMOUS EPITHELIAL CELL UR AU 0 /HPF (0-6); UROBILINOGEN, URINE AUTO 0.2 mg/dL (0.0-2.0); WBC, URINE AUTO 0 /HPF (0-3)
== END ==
LOC: M LAB REF 12:55
DX: R10.84 Generalized abdominal pain (principal); R93.3 Abnormal findings on diagnostic imaging of other parts of digestive tract; R30.0 Dysuria; K21.9 Gastro-esophageal reflux disease without esophagitis
CPT/HCPCS: 81001

== ENCOUNTER → 2017-10-15 | Outpatient (CLI) | payer BC | LOC: M WHC 13:33 | DX: Z12.31 Encounter for screening mammogram for malignant neoplasm of breast (principal) | CPT/HCPCS: 77067 ==

== ENCOUNTER → 2017-12-06 | Outpatient (CLI) | payer BC ==
[2017-12-06 19:52] LABS: ANION GAP 5 MEQ/L (8-16); BLOOD UREA NITROGEN 16 MG/DL (7-18); CALCIUM LEVEL 8.8 MG/DL (8.8-10.2); CARBON DIOXIDE LEVEL 30 MEQ/L (21-32); CHLORIDE LEVEL 108 MEQ/L (98-107); CREATININE FOR GFR 1.36 MG/DL (0.55-1.30); GLOMERULAR FILTRATION RATE 40.8 (>39); GLUCOSE, FASTING 88 MG/DL (70-100); POTASSIUM SERUM 4.2 MEQ/L (3.5-5.1); SODIUM LEVEL 143 MEQ/L (136-145)
== END ==
LOC: M ADAMS 15:19
DX: H02.423 Myogenic ptosis of bilateral eyelids (principal)
CPT/HCPCS: 80048

== ENCOUNTER → 2018-02-27 | Outpatient (REF) | payer BC | LOC: M LAB REF 09:32 | PROVIDERS: ATTEND Physician Assistant Medical | DX: M54.5 Low back pain (principal) ==

== ENCOUNTER → 2018-03-29 | Outpatient (CLI) | payer MEDICARE ==
[2018-03-29 19:56] LABS: BASO % 0.6 % (0.0-1.0); EOS # 0.4 10^3/uL (0.0-0.50); EOS % 6.2 % (0.0-3.0); HEMATOCRIT 40.6 % (36.0-47.0); HEMOGLOBIN 13.6 g/dl (12.0-15.5); LYMPH # 2.2 10^3/uL (1.5-4.5); LYMPH % 32.7 % (24.0-44.0); MEAN CORPUSCULAR HEMOGLOBIN 30.6 pg (27.0-33.0); MEAN CORPUSCULAR HGB CONC 33.5 g/dl (32.0-36.5); MEAN CORPUSCULAR VOLUME 91.4 fl (80.0-96.0); MONO # 0.4 10^3/uL (0.0-0.8); MONO % 6.4 % (0.0-5.0); NEUTROPHILS # 3.6 10^3/uL (1.8-7.7); NEUTROPHILS % 53.7 % (36.0-66.0); PLATELET COUNT, AUTOMATED 259 10^3/uL (150-450); RED BLOOD COUNT 4.44 10^6/uL (4.00-5.40); WHITE BLOOD COUNT 6.7 10^3/uL (4.0-10.0)
== END ==
LOC: M LABDRWAD 14:02
PROVIDERS: ATTEND Physician Assistant Medical
DX: J20.9 Acute bronchitis, unspecified (principal)

== ENCOUNTER → 2018-03-29 | Outpatient (CLI) | payer MEDICARE ==
--- NOTE | 2018-03-29 15:45 | REP ---
Clinical: Acute bronchitis. Technique: PA and lateral. Comparison: 03/25/2016. Findings: A surgical clip is identified in the periphery of the left mid lung zone and associated subtle nodular density is suggested. Mediastinum and cardiac silhouette are normal. Remainder of lung hall are clear. No consolidation, effusion, or pneumothorax. Skeletal structures are intact. Impression: Subtle nodular density at the site of surgical clip may warrant followup CT. No further acute mediastinal or pleuroparenchymal process appreciated. Electronically Signed by Robby Norton MD 03/29/2018 03:37 P
== END ==
LOC: M ADAMS 13:59
PROVIDERS: ATTEND Physician Assistant Medical
DX: J20.9 Acute bronchitis, unspecified (principal)

== ENCOUNTER → 2018-04-06 | Outpatient (REF) | payer MEDICARE | LOC: M SFHCADAM 11:34 | PROVIDERS: ATTEND Family Medicine | DX: K55.1 Chronic vascular disorders of intestine (principal); E78.5 Hyperlipidemia, unspecified; M79.7 Fibromyalgia; Z53.9 Procedure and treatment not carried out, unspecified reason ==

== ENCOUNTER → 2018-04-13 | Outpatient (REF) | payer MEDICARE ==
[2018-04-13 20:09] LABS: HEMATOCRIT 38.9 % (36.0-47.0); HEMOGLOBIN 12.5 g/dl (12.0-15.5); MEAN CORPUSCULAR HEMOGLOBIN 30.9 pg (27.0-33.0); MEAN CORPUSCULAR HGB CONC 32.1 g/dl (32.0-36.5); MEAN CORPUSCULAR VOLUME 96.3 fl (80.0-96.0); PLATELET COUNT, AUTOMATED 248 10^3/uL (150-450); RED BLOOD COUNT 4.04 10^6/uL (4.00-5.40); WHITE BLOOD COUNT 6.1 10^3/uL (4.0-10.0)
[2018-04-13 20:14] LABS: ALBUMIN 3.8 GM/DL (3.2-5.2); BILIRUBIN,TOTAL 0.7 MG/DL (0.2-1.0); CALCIUM LEVEL 9.1 MG/DL (8.8-10.2); CHOLESTEROL RISK RATIO 4.923 (<5); CREATININE FOR GFR 1.28 MG/DL (0.55-1.30); FREE T4 0.84 NG/DL (0.76-1.46); GLOMERULAR FILTRATION RATE 43.6 (>39); POTASSIUM SERUM 4.1 MEQ/L (3.5-5.1); THYROID STIMULATING HORMONE 1.69 uIU/ML (0.358-3.740); TOTAL PROTEIN 7.4 GM/DL (6.4-8.2)
[2018-04-13 20:18] LABS: TOTAL 25(OH) VITAMIN D 37.1 NG/ML (30.0-100.0)
== END ==
LOC: M SFHCADAM 14:52
PROVIDERS: ATTEND Family Medicine
DX: J32.9 Chronic sinusitis, unspecified (principal); I11.9 Hypertensive heart disease without heart failure; E78.5 Hyperlipidemia, unspecified; M79.7 Fibromyalgia; E55.9 Vitamin D deficiency, unspecified; Z68.37 Body mass index [BMI] 37.0-37.9, adult

== ENCOUNTER → 2018-05-11 | Outpatient (REF) | payer MEDICARE ==
[2018-05-11 12:20] LABS: BASO % 0.6 % (0.0-1.0); EOS # 0.3 10^3/uL (0.0-0.50); EOS % 5.4 % (0.0-3.0); HEMATOCRIT 37.6 % (36.0-47.0); HEMOGLOBIN 12.5 g/dl (12.0-15.5); LYMPH # 1.3 10^3/uL (1.5-4.5); LYMPH % 26.9 % (24.0-44.0); MEAN CORPUSCULAR HEMOGLOBIN 31.2 pg (27.0-33.0); MEAN CORPUSCULAR HGB CONC 33.2 g/dl (32.0-36.5); MEAN CORPUSCULAR VOLUME 93.8 fl (80.0-96.0); MONO # 0.4 10^3/uL (0.0-0.8); MONO % 7.9 % (0.0-5.0); NEUTROPHILS # 2.9 10^3/uL (1.8-7.7); PLATELET COUNT, AUTOMATED 228 10^3/uL (150-450); RED BLOOD COUNT 4.01 10^6/uL (4.00-5.40); WHITE BLOOD COUNT 4.8 10^3/uL (4.0-10.0)
[2018-05-11 12:59] LABS: ERYTHROCYTE SEDIMENTATION RATE 22 mm/hr (0-30)
[2018-05-11 13:16] LABS: C REACTIVE PROTEIN QUANTITATIV < 0.30 MG/DL (0.00-0.30); RHEUMATOID FACTOR QUANT < 10.0 IU/ML (<15.0)
[2018-05-14 00:06] LABS: ANA (HEP2) Negative (.); CYCLIC CITRULLINATED PEPTIDE 5 units (0-19); Lyme Disease IgG/IgM Antibodie <0.91 ISR (0.00-0.90); Lyme Disease IgM Ab Quantitati <0.80 index (0.00-0.79)
== END ==
LOC: M SFHCADAM 10:14
PROVIDERS: ATTEND Family Medicine
DX: M25.60 Stiffness of unspecified joint, not elsewhere classified (principal)

== ENCOUNTER → 2018-05-11 | Outpatient (CLI) | payer MEDICARE ==
--- NOTE | 2018-05-11 11:40 | REP ---
BILATERAL KNEES, NINE VIEWS: HISTORY: Arthritis. RIGHT KNEE: There is no acute fracture or dislocation. There is moderate narrowing of the medial knee joint space. There is minimal narrowing of the lateral knee joint space and mild narrowing of the lateral patellofemoral joint space. An osteophyte is present on the femur. IMPRESSION: Degenerative change as described above. LEFT KNEE: There is no acute fracture or dislocation. There is moderate narrowing of the medial knee joint space and lateral patellofemoral joint space. Osteophytes are present on the femur and tibia. IMPRESSION: Degenerative change as described above. Electronically Signed by Vinicio Carter MD 05/11/2018 11:47 A
== END ==
LOC: M ADAMS 10:06
PROVIDERS: ATTEND Family Medicine
DX: M17.2 Bilateral post-traumatic osteoarthritis of knee (principal)

== ENCOUNTER → 2018-06-09 | Outpatient (CLI) | payer MEDICARE ==
[~2018-06-09] MED LIST changes: -/PANT40TA PO; -CLON1PA TOP; +CLON1PAT TOP; +PROT1TAB2 PO
== END ==
LOC: M SMT 14:53
PROVIDERS: ATTEND Allergy & Immunology Allergy
DX: Z91.018 Allergy to other foods (principal)

== ENCOUNTER → 2018-07-22 | Outpatient (REF) | payer MEDICARE | LOC: M LAB REF 08:47 | PROVIDERS: ATTEND Physician Assistant Medical | DX: R30.0 Dysuria (principal) ==

== ENCOUNTER → 2018-11-08 | Outpatient (REF) | payer MEDICARE ==
[2018-11-16 00:06] LABS: CALPROTECTIN STOOL 117 ug/g (0-120); FATS NEUTRAL Normal (.); FATS TOTAL Normal (.)
== END ==
LOC: M LAB REF 15:18
PROVIDERS: ATTEND Internal Medicine Gastroenterology
DX: R19.7 Diarrhea, unspecified (principal); K44.9 Diaphragmatic hernia without obstruction or gangrene; R10.12 Left upper quadrant pain; K21.9 Gastro-esophageal reflux disease without esophagitis; K57.30 Diverticulosis of large intestine without perforation or abscess without bleeding; E55.9 Vitamin D deficiency, unspecified

== ENCOUNTER → 2018-12-06 | Outpatient (REF) | payer MEDICARE ==
[2018-12-06 17:43] LABS: CALCIUM LEVEL 9.6 MG/DL (8.8-10.2); CHOLESTEROL RISK RATIO 4.366 (<5); CREATININE FOR GFR 1.47 MG/DL (0.55-1.30); GLOMERULAR FILTRATION RATE 37.2 (>39); POTASSIUM SERUM 4.4 MEQ/L (3.5-5.1); TOTAL PROTEIN 7.7 GM/DL (6.4-8.2)
[2018-12-06 17:48] LABS: HEMATOCRIT 41.8 % (36.0-47.0); HEMOGLOBIN 13.7 g/dl (12.0-15.5); MEAN CORPUSCULAR HEMOGLOBIN 31.6 pg (27.0-33.0); MEAN CORPUSCULAR HGB CONC 32.8 g/dl (32.0-36.5); MEAN CORPUSCULAR VOLUME 96.3 fl (80.0-96.0); PLATELET COUNT, AUTOMATED 274 10^3/uL (150-450); RED BLOOD COUNT 4.34 10^6/uL (4.00-5.40); WHITE BLOOD COUNT 5.1 10^3/uL (4.0-10.0)
== END ==
LOC: M SFHCADAM 11:38
PROVIDERS: ATTEND Family Medicine
DX: M79.7 Fibromyalgia (principal); E78.49 Other hyperlipidemia

== ENCOUNTER → 2018-12-06 | Outpatient (REF) | payer MEDICARE ==
[2018-12-06 17:38] LABS: CREATININE FOR GFR 1.48 MG/DL (0.55-1.30); GLOMERULAR FILTRATION RATE 36.9 (>39); MAGNESIUM LEVEL 2.2 MG/DL (1.8-2.4)
[2018-12-06 17:50] LABS: TOTAL 25(OH) VITAMIN D 52.4 NG/ML (30.0-100.0)
== END ==
LOC: M LABDRWAD 15:47
PROVIDERS: ATTEND Internal Medicine Gastroenterology
DX: R10.12 Left upper quadrant pain (principal); R19.7 Diarrhea, unspecified; K44.9 Diaphragmatic hernia without obstruction or gangrene; K57.30 Diverticulosis of large intestine without perforation or abscess without bleeding; E55.9 Vitamin D deficiency, unspecified; Z79.899 Other long term (current) drug therapy

== ENCOUNTER → 2019-03-13 | Outpatient (REF) | payer MEDICARE ==
[2019-03-13 14:38] LABS: CALCIUM LEVEL 9.3 MG/DL (8.8-10.2); CREATININE FOR GFR 1.28 MG/DL (0.55-1.30); GLOMERULAR FILTRATION RATE 43.5 (>39); POTASSIUM SERUM 4.1 MEQ/L (3.5-5.1)
== END ==
LOC: M SFHCADAM 11:17
PROVIDERS: ATTEND Family Medicine
DX: N18.3 Chronic kidney disease, stage 3 (moderate) (principal)

== ENCOUNTER → 2019-03-16 | Outpatient (CLI) | payer MEDICARE ==
--- NOTE | 2019-03-16 18:21 | REP ---
LUMBOSACRAL SPINE: Five views of the lumbosacral spine performed. There is no fracture or dislocation. There is normal lumbar lordosis with no spondylolysis or spondylolisthesis. There is mild diffuse spurring. There is mild disc space narrowing and subchondral sclerosis at all levels. There is a more moderate degree of disc space narrowing at L5-S1. Vacuum phenomenon is seen at L4-5. There is sclerosis and spurring at the facets of L4-5 and L5-S1. There is slight curvature of the upper lumbar spine convex to the right and lower lumbar spine convex to the left. Posterior elements are intact. Metallic clips are seen in the upper abdomen. IMPRESSION: Degenerative changes as above. Electronically Signed by Jason Balderrama MD 03/16/2019 07:16 P
== END ==
LOC: M ADAMS 16:04
PROVIDERS: ATTEND Family Medicine
DX: M51.37 Other intervertebral disc degeneration, lumbosacral region (principal); M54.5 Low back pain

== ENCOUNTER → 2019-10-04 | Outpatient (REF) | payer MEDICARE ==
[2019-11-02 10:48] LABS: HEMATOCRIT 41.7 % (36.0-47.0); HEMOGLOBIN 13.6 g/dl (12.0-15.5); MEAN CORPUSCULAR HEMOGLOBIN 31.5 pg (27.0-33.0); MEAN CORPUSCULAR HGB CONC 32.6 g/dl (32.0-36.5); MEAN CORPUSCULAR VOLUME 96.5 fl (80.0-96.0); PLATELET COUNT, AUTOMATED 259 10^3/uL (150-450); RED BLOOD COUNT 4.32 10^6/uL (4.00-5.40); WHITE BLOOD COUNT 5.8 10^3/uL (4.0-10.0)
[2019-11-18 12:15] LABS: ALBUMIN 4.1 GM/DL (3.2-5.2); BILIRUBIN,TOTAL 0.9 MG/DL (0.2-1.0); CALCIUM LEVEL 9.4 MG/DL (8.8-10.2); CHOLESTEROL RISK RATIO 4.705 (<5); CREATININE FOR GFR 1.35 MG/DL (0.55-1.30); FREE T4 0.91 NG/DL (0.76-1.46); GLOMERULAR FILTRATION RATE 40.9 (>39); POTASSIUM SERUM 4.5 MEQ/L (3.5-5.1); THYROID STIMULATING HORMONE 1.77 uIU/ML (0.358-3.740); TOTAL PROTEIN 7.7 GM/DL (6.4-8.2)
== END ==
LOC: M SFHCADAM 11:28
PROVIDERS: ATTEND Family Medicine
DX: I13.0 Hypertensive heart and chronic kidney disease with heart failure and stage 1 through stage 4 chronic kidney disease, or unspecified chronic kidney disease (principal); M79.7 Fibromyalgia; N18.3 Chronic kidney disease, stage 3 (moderate); E78.5 Hyperlipidemia, unspecified; I50.9 Heart failure, unspecified

== ENCOUNTER → 2020-03-07 | Outpatient (REF) | payer MEDICARE ==
[2020-03-07 17:28] LABS: CALCIUM LEVEL 9.2 MG/DL (8.8-10.2); CREATININE FOR GFR 1.29 MG/DL (0.55-1.30); POTASSIUM SERUM 4.2 MEQ/L (3.5-5.1)
== END ==
LOC: M SFHCADAM 14:44
PROVIDERS: ATTEND Family Medicine
DX: R60.0 Localized edema (principal); R06.00 Dyspnea, unspecified

== ENCOUNTER → 2020-03-07 | Outpatient (REF) | payer MEDICARE ==
[2020-03-07 17:19] LABS: HEMATOCRIT 35.4 % (36.0-47.0); HEMOGLOBIN 11.5 g/dl (12.0-15.5); MEAN CORPUSCULAR HGB CONC 32.5 g/dl (32.0-36.5); MEAN CORPUSCULAR VOLUME 101.7 fl (80.0-96.0); PLATELET COUNT, AUTOMATED 266 10^3/uL (150-450); RED BLOOD COUNT 3.48 10^6/uL (4.00-5.40); WHITE BLOOD COUNT 6.1 10^3/uL (4.0-10.0)
[2020-03-07 17:46] LABS: ALBUMIN 3.9 GM/DL (3.2-5.2); BILIRUBIN,TOTAL 0.9 MG/DL (0.2-1.0); CALCIUM LEVEL 9.3 MG/DL (8.8-10.2); CREATININE FOR GFR 1.34 MG/DL (0.55-1.30); GLOMERULAR FILTRATION RATE 41.2 (>39); MAGNESIUM LEVEL 2.2 MG/DL (1.8-2.4); POTASSIUM SERUM 4.4 MEQ/L (3.5-5.1); THYROID STIMULATING HORMONE 1.54 uIU/ML (0.358-3.740); TOTAL PROTEIN 6.9 GM/DL (6.4-8.2)
== END ==
LOC: M LABDRWAD 16:23
PROVIDERS: ATTEND Internal Medicine Gastroenterology
DX: E87.6 Hypokalemia (principal); R19.7 Diarrhea, unspecified; K44.9 Diaphragmatic hernia without obstruction or gangrene; K21.9 Gastro-esophageal reflux disease without esophagitis; K31.84 Gastroparesis; E56.9 Vitamin deficiency, unspecified

== ENCOUNTER → 2020-04-04 | Outpatient (CLI) | payer MEDICARE ==
--- NOTE | 2020-04-04 17:45 | REP ---
INDICATION: TIA COMPARISON: Comparison study January 15, 2008.. TECHNIQUE: Real-time ultrasound evaluation and duplex Doppler interrogation of the extracranial carotid vasculature is performed. FINDINGS: Antegrade flow is observed in both vertebral arteries. Right carotid: The right common carotid artery shows diffuse intimal thickening but is otherwise unremarkable. There minimal soft plaquing in the right carotid bulb and proximal ICA on two-dimensional scanning. Color flow and spectral Doppler interrogation are unremarkable on the right. Velocity chart right carotid: Right CCA PSV: 109 cm/S Right ICA PSV: 105 cm/S Right ICA EDV: 26 cm/S Right ECA PSV: 91 cm/S Right ICA/CCA ratio: 0.96 Left carotid: The left common carotid artery shows diffuse intimal thickening but is otherwise unremarkable. There is minimal soft plaquing in the left carotid bulb and proximal ICA on two-dimensional scanning. Color flow and spectral Doppler interrogation are unremarkable on the left. Velocity chart left carotid: Left CCA PSV: 97 cm/S Left ICA PSV: 93 cm/S Left ICA EDV: 25 cm/S Left ECA PSV: 141 cm/S Left ICA/CCA ratio: 0.96 IMPRESSION: Less than 50% category narrowing in the right internal carotid artery by Doppler velocity criteria. Less than 50% category narrowing in the left ICA by Doppler velocity criteria. <Electronically signed by Lavelle Zambrano > 04/04/20 [id number]
== END ==
LOC: M RAD 16:03
PROVIDERS: ATTEND Family Medicine
DX: G45.9 Transient cerebral ischemic attack, unspecified (principal)

== ENCOUNTER → 2020-06-11 | Outpatient (REF) | payer MEDICARE ==
[2020-06-11 18:47] LABS: CREATININE FOR GFR 1.29 MG/DL (0.55-1.30); POTASSIUM SERUM 4.9 MEQ/L (3.5-5.1)
[2020-06-11 18:48] LABS: CALCIUM LEVEL 9.8 MG/DL (8.8-10.2); MAGNESIUM LEVEL 2.4 MG/DL (1.8-2.4)
== END ==
LOC: M SFHCADAM 12:16
PROVIDERS: ATTEND Family Medicine
DX: I11.9 Hypertensive heart disease without heart failure (principal); N18.30 Chronic kidney disease, stage 3 unspecified

== ENCOUNTER → 2020-09-30 | Outpatient (REF) | payer MEDICARE ==
[2020-09-30 18:51] LABS: BASO % 0.4 % (0.0-1.0); EOS # 0.2 10^3/uL (0.0-0.5); EOS % 2.3 % (0.0-3.0); HEMATOCRIT 36.9 % (36.0-47.0); LYMPH # 1.7 10^3/uL (1.5-5.0); LYMPH % 25.1 % (24.0-44.0); MEAN CORPUSCULAR HEMOGLOBIN 31.1 pg (27.0-33.0); MEAN CORPUSCULAR HGB CONC 32.5 g/dl (32.0-36.5); MEAN CORPUSCULAR VOLUME 95.6 fl (80.0-96.0); MONO # 0.4 10^3/uL (0.0-0.8); MONO % 6.2 % (2.0-8.0); NEUTROPHILS # 4.5 10^3/uL (1.5-8.5); NEUTROPHILS % 65.6 % (36.0-66.0); PLATELET COUNT, AUTOMATED 235 10^3/uL (150-450); RED BLOOD COUNT 3.86 10^6/uL (4.00-5.40); WHITE BLOOD COUNT 6.9 10^3/uL (4.0-10.0)
[2020-09-30 19:21] LABS: PERCENT SATURATION 18.6 % (13.2-45.0)
== END ==
LOC: M LABDRWAD 18:06
PROVIDERS: ATTEND Orthopaedic Surgery
DX: Z01.818 Encounter for other preprocedural examination (principal); M17.11 Unilateral primary osteoarthritis, right knee; M25.561 Pain in right knee

== ENCOUNTER 2020-10-14 18:13 | Inpatient (IN) | payer MEDICARE ==
[~2020-10-14] VITALS: Ht 163.8 cm; Wt 95.0 kg
[2020-10-14] MEDS ORDERED: GI COCKTAIL 50ML BTL(HYOSCYAMINE/MAALOX/LIDOCAINE VISCOUS)(1:3:1) PO ONE (20:15)
[2020-10-14] MEDS ORDERED: PANTOPRAZOLE 40MG VIAL (C9113 PER 1) IV ONE (20:15)
[2020-10-14] MEDS ORDERED: ISOVUE-370 76% 100ML VIAL As Ordered ONE (20:57)
[2020-10-14 21:01] LABS: BASO % 0.3 % (0.0-1.0); EOS # 0.1 10^3/uL (0.0-0.5); EOS % 1.6 % (0.0-3.0); HEMATOCRIT 36.5 % (36.0-47.0); HEMOGLOBIN 13.3 g/dl (12.0-15.5); LYMPH # 1.6 10^3/uL (1.5-5.0); LYMPH % 23.5 % (24.0-44.0); MEAN CORPUSCULAR HEMOGLOBIN 31.7 pg (27.0-33.0); MEAN CORPUSCULAR HGB CONC 36.4 g/dl (32.0-36.5); MEAN CORPUSCULAR VOLUME 87.1 fl (80.0-96.0); MONO # 0.6 10^3/uL (0.0-0.8); MONO % 9.3 % (2.0-8.0); NEUTROPHILS # 4.5 10^3/uL (1.5-8.5); NEUTROPHILS % 64.9 % (36.0-66.0); PLATELET COUNT, AUTOMATED 210 10^3/uL (150-450); RED BLOOD COUNT 4.19 10^6/uL (4.00-5.40); WHITE BLOOD COUNT 6.9 10^3/uL (4.0-10.0)
[2020-10-14 21:33] LABS: ALBUMIN 4.4 GM/DL (3.2-5.2); ALT/SGPT 29 U/L (12-78); BILIRUBIN,DIRECT 0.3 MG/DL (0.0-0.2); BILIRUBIN,TOTAL 1.4 MG/DL (0.2-1.0); BLOOD UREA NITROGEN 19 MG/DL (7-18); CALCIUM LEVEL 9.5 MG/DL (8.8-10.2); CARBON DIOXIDE LEVEL 27 MEQ/L (21-32); CHLORIDE LEVEL 80 MEQ/L (98-107); CK-MB VALUE MASS 1.9 NG/ML (<3.6); CPK CREATINE PHOSPHOKINASE 160 U/L (26-192); CREATININE FOR GFR 1.45 MG/DL (0.55-1.30); GLOMERULAR FILTRATION RATE 37.6 (>39); GLUCOSE, FASTING 73 MG/DL (70-100); LIPASE 303 U/L (73-393); MB/CK RELATIVE INDEX 1.19 (< OR =4); POTASSIUM SERUM 3.5 MEQ/L (3.5-5.1); SODIUM LEVEL 119 MEQ/L (136-145); TOTAL PROTEIN 7.7 GM/DL (6.4-8.2); TROPONIN I < 0.02 NG/ML (< 0.10)
[2020-10-14 23:43] LABS: OSMOLALITY URINE 155 MOSM/KG (50-1400)
[2020-10-14 23:48] LABS: OSMOLALITY SERUM 245 MOSM/KG (280-301)
[2020-10-14 23:55] LABS: SODIUM,RANDOM URINE 30 MEQ/L
--- NOTE | 2020-10-14 23:57 | REPVR ---
PROCEDURE INFORMATION: Exam: CT Abdomen And Pelvis With Contrast Exam date and time: 10/14/2020 11:07 PM Age: 75 years old Clinical indication: Abdominal pain; Localized; Left upper quadrant (luq); Additional info: Luq/epigastric pain TECHNIQUE: Imaging protocol: Computed tomography of the abdomen and pelvis with contrast. Radiation optimization: All CT scans at this facility use at least one of these dose optimization techniques: automated exposure control; mA and/or kV adjustment per patient size (includes targeted exams where dose is matched to clinical indication); or iterative reconstruction. Contrast material: ISOVUE 370; Contrast volume: 100 ml; Contrast route: INTRAVENOUS (IV); COMPARISON: PT PET/CT Skull/mid thigh 02/17/2017 1:33 PM FINDINGS: Lungs: Nodule in the lateral left lower lobe measuring 14 x 15 x 23 mm with a tapering tail which extends centrally toward the left hilum and has associated coarse calcifications consistent with scar or granuloma. This appears slightly increased and better defined since 02/17/2017 and may reflect treated malignancy. Liver: The liver attenuation is 81 Hounsfield units and the spleen is 108 Hounsfield units. Gallbladder and bile ducts: Status post cholecystectomy. Pancreas: Normal. No ductal dilation. Spleen: Normal. No splenomegaly. Adrenal glands: Nodule of the left adrenal measuring 9-10 mm. Kidneys and ureters: Normal. No hydronephrosis. Stomach and bowel: There are a few colonic diverticula without diverticulitis. Appendix: There are no changes of appendicitis. A normal appendix is not seen although there may be an appendiceal stump. Intraperitoneal space: Unremarkable. No free air. No significant fluid collection. Vasculature: There is minimal atherosclerotic calcification of the abdominal aorta. Lymph nodes: Unremarkable. No enlarged lymph nodes. Urinary bladder: Unremarkable as visualized. Reproductive: Unremarkable as visualized. Bones/joints: Unremarkable. No acute fracture. Soft tissues: Unremarkable. IMPRESSION: 1. Old granuloma or scar in the left lower lobe laterally. Treated malignancy is not excluded. 2. Status post cholecystectomy. 3. There are a few colonic diverticula without diverticulitis. 4. Otherwise negative CT abdomen/pelvis. Electronically signed by: Pepe Pena On 10/14/2020 23:57:09 PM
[2020-10-15 02:18] LABS: RSV AMPLIFICATION NEGATIVE (NEGATIVE)
--- NOTE | 2020-10-15 02:30 | REPVR ---
PROCEDURE INFORMATION: Exam: CT Head Without Contrast Exam date and time: 10/15/2020 1:58 AM Age: 75 years old Clinical indication: Dizziness; Additional info: Hyponatremia, dizzy, balance incoordination TECHNIQUE: Imaging protocol: Computed tomography of the head without contrast. Radiation optimization: All CT scans at this facility use at least one of these dose optimization techniques: automated exposure control; mA and/or kV adjustment per patient size (includes targeted exams where dose is matched to clinical indication); or iterative reconstruction. COMPARISON: CT Head without contrast 05/06/2015 12:54 PM FINDINGS: Brain: There is mild patchy low attenuation of deep white matter. The sulci are within normal limits. Cerebral ventricles: No ventriculomegaly. Paranasal sinuses: Visualized sinuses are unremarkable. No fluid levels. Mastoid air cells: Visualized mastoid air cells are well aerated. Bones/joints: Unremarkable. No acute fracture. Soft tissues: Unremarkable. IMPRESSION: 1. Mild chronic ischemic white matter change. 2. Otherwise negative noncontrast head CT which is essentially unchanged from 05/06/2015. Electronically signed by: Pepe Pena On 10/15/2020 02:29:44 AM
[2020-10-15] MEDS ORDERED: NS 1,000 ML IV ONE (03:00)
[2020-10-15 03:06] VITALS: BP 157/68
--- NOTE | 2020-10-15 03:26 | HPEPDOC ---
General Date of Admission Oct 15, 2020 at 00:32 Date of Service: Oct 15, 2020 Chief Complaint abdominal pain Source: Patient, Family () History of Present Illness Elizabeth Thibodeaux is a 75-year-old female with significant history of Gastritis, esophagitis, hypertension, migraines, fibromyalgia, OSAuses CPAP, obesity, OA bilateral knees arrives with chief complaint of abdominal pain. Patient describes the generalized abdominal pain as moderate worsening the past 3 days. She reports that she has had a history of gastritis and it did feel as a similar upset. Patient reports she is abdominal pain-free after GI cocktail. However, patient also describes several other generalized complaints including weakness, instability with gait, dizziness, chills, fatigue, loss of appetite, episodes of loose stool and headaches. Pt denies goodwin, sinus congestion, sore throat, productive cough, sob, palpitations, chest pain, n/v, sensory changes or syncope. Home Medications Scheduled Calcium Carbonate/Vitamin D3 (Calcium 500-Vit D3 200 Tablet) 1 Each Tablet, 1 TAB PO BID, (Reported) Cyanocobalamin (Vitamin B-12) (Vitamin B-12) 500 Mcg Tablet, 500 MCG PO QPM, (Reported) TAKES AT DINNERTIME Digestive 8/L.acidoph/Pectin (Digestive Enzymes Tablet) 1 Each Tablet, 1 TAB PO WM, (Reported) Esomeprazole Magnesium (Nexium) 40 Mg Capsule.dr, 40 MG PO BID, (Reported) Inulin (Fiber Gummies) 2 Gm Tab.chew, 2 CHW PO DAILY, (Reported) Inulin (Fiber Gummies) 2 Gm Tab.chew, 1 CHW PO QPM, (Reported) TAKES AT DINNERTIME L.acidoph/L.bulg/B.bif/S.therm (Bacid Caplet) 1 Each Tablet, 1 TAB PO BID, (Reported) Magnesium Oxide (Magnesium Oxide) 400 Mg Tablet, 400 MG PO BID, (Reported) Metoprolol Tartrate (Metoprolol Tartrate) 25 Mg Tablet, 25 MG PO BID, (Reported) Multivitamins (Thera M Plus Tablet) 1 Each Tablet, 1 TAB PO DAILY, (Reported) Vitamin B Complex (Vitamin B Complex) 1 Each Tablet, 1 TAB PO DAILY, (Reported) Wheat Dextrin (Benefiber) 1 Each Powd.pack, 1 POW PO BID, (Reported) [Glutenease] , 1 TAB PO WM, (Reported) Scheduled PRN Albuterol Sulfate (Proair Hfa) 8.5 Gm Hfa.aer.ad, 2 PUFF INH QID PRN for SHORTNESS OF BREATH, (Reported) Amlodipine Besylate (Norvasc) 5 Mg Tablet, 5 MG PO BIDP PRN for sbp>150 or dbp>90 Diphenhydramine HCl (Benadryl) 25 Mg Capsule, 25 MG PO Q6H PRN for ALLERGY SYMPTOMS, (Reported) Fluticasone Propionate (Flonase Allergy Relief) 9.9 Ml [place].susp, 1 SPRAY NA BID PRN for NASAL CONGESTION, (Reported) Levocetirizine Dihydrochloride (Levocetirizine Dihydrochloride) 5 Mg Tablet, 5 MG PO DAILY PRN for ALLERGY SYMPTOMS, (Reported) Allergies Coded Allergies: NSAIDS (Non-Steroidal Anti-Inflamma (Verified Allergy, Unknown, HIVES, 10/14/20) Penicillins (Verified Allergy, Unknown, HIVES, 10/14/20) Mnywzfw-Xtr-Bxb Reductase Inhibitor (Verified Allergy, Unknown, 10/14/20) Sulfa (Sulfonamide Antibiotics) (Verified Allergy, Unknown, HIVES, 10/14/20) aspirin (Verified Allergy, Unknown, HIVES, 10/14/20) azithromycin (Verified Allergy, Unknown, 10/14/20) ciprofloxacin (Verified Allergy, Unknown, 10/14/20) doxycycline (Verified Allergy, Unknown, 10/14/20) iodine (Verified Allergy, Unknown, 10/14/20) levofloxacin (Verified Allergy, Unknown, 10/14/20) naproxen (Verified Allergy, Unknown, HIVES, 10/14/20) sucralfate (Verified Allergy, Unknown, 10/14/20) Past Medical History Medical History Gastritis, esophagitis, GERD, hypertension, migraines, fibromyalgia, OSAuses CPAP, obesity, OA bilateral knees right worse than left Surgical History Cholecystectomy, breast biopsy, Family History Significant Family History: No pertinent family hx Social History * Smoker: Denies Alcohol: Denies Drugs: denies Recent Travel/Sick Contacts: Denies: Recent travel, Recent sick contacts Psychosocial History: No 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 A-FIB/CHADSVASC A-FIB History Current/History of A-Fib/PAF?: No Current PO Anticoag Therapy: No Review of Systems Constitutional: Reports: Chills, Fatigue; Denies: Fever, Night Sweats Eyes: Denies: Pain, Vision change ENT: Denies: Head Aches, Ear Pain, Dysphagia Skin: Denies: Rash, Lesions, Breakdown Pulmonary: Denies: Dyspnea, Cough Cardiovascular: Reports: Lt Headedness; Denies: Chest Pain, Palpitations, Orthopnea, Paroxysmal Noc. Dyspnea Gastrointestinal: Reports: Abdominal Pain, Diarrhea; Denies: Nausea, Vomiting Genitourinary: Denies: Dysuria, Frequency, Incontinence, Retention Hematologic: Denies: Bruising, Bleeding Excessively Musculoskeletal: Denies: Neck Pain, Back Pain, Joint Pain, Muscle Pain, Spasms Neurological: Reports: Weakness, Incoordination; Denies: Numbness, Change in speech, Confusion Psych: Reports: Mood Normal; Denies: Depression, Memory Issues Physical Examination General Exam: Positive: Alert, Cooperative, No Acute Distress Eye Exam: Positive: PERRLA, Conjunctiva & lids normal, EOMI; Negative: Sclera icteric ENT Exam: Positive: Atraumatic, Mucous membr. moist/pink, Pharynx Normal Neck Exam: Positive: Supple; Negative: JVD, thyromegaly Chest Exam: Positive: Clear to auscultation, Normal air movement Heart Exam: Positive: Rate Normal, Regular Rhythm, Normal S1, Normal S2; Negative: Murmurs, Rubs Telemetry: Positive: No significant arrhythmia Abdomen Exam: Positive: Normal bowel sounds, Soft, Tenderness; Negative: Hepatospenomegaly Extremity Exam: Positive: Normal pulses; Negative: Clubbing, Cyanosis, Edema Skin Exam: Positive: Nl turgor and temperature; Negative: Breakdown, Lesion Neuro Exam: Positive: Normal Speech, Cranial Nerves 3-12 NL, Reflexes 2+ Psych Exam: Positive: Mental status NL, Mood NL, Oriented x 3 Vital Signs Vital Signs Date Time Temp Pulse Resp B/P (MAP) Pulse Ox O2 Delivery O2 Flow Rate FiO2 10/15/20 02:00 62 14 150/69 (96) 99 Room Air 10/14/20 20:42 98.1 Laboratory Data Labs 24H Laboratory Tests 2 10/14/20 19:58: Immature Granulocyte % (Auto) 0.4, Neutrophils (%) (Auto) 64.9, Lymphocytes (%) (Auto) 23.5L, Monocytes (%) (Auto) 9.3H, Eosinophils (%) (Auto) 1.6, Basophils (%) (Auto) 0.3, Neutrophils # (Auto) 4.5, Lymphocytes # (Auto) 1.6, Monocytes # (Auto) 0.6, Eosinophils # (Auto) 0.1, Basophils # (Auto) 0.0, Nucleated Red Blood Cells % (auto) 0.0, Urine Color STRAW, Urine Appearance CLEAR, Urine pH 7.0, Urine Specific [place] 1.003, Urine Protein NEGATIVE, Urine Glucose (UA) NEGATIVE, Urine Ketones TRACEH, Urine Blood NEGATIVE, Urine Nitrite NEGATIVE, Urine Bilirubin NEGATIVE, Urine Urobilinogen 0.2, Urine Leukocyte Esterase NEGATIVE, Urine WBC (Auto) 0, Urine RBC (Auto) 0, Urine Hyaline Casts (Auto) 0, Urine Bacteria (Auto) NEGATIVE, Urine Squamous Epithelial Cells 0, Urine Sperm (Auto) , Anion Gap 12, Glomerular Filtration Rate 37.6L, Osmolality 245L, Lactic Acid Level 0.8, Calcium Level 9.5, Total Bilirubin 1.4H, Direct Bilirubin 0.3H, Aspartate Amino Transf (AST/SGOT) 27, Alanine Aminotransferase (ALT/SGPT) 29, Alkaline Phosphatase 81, Total Creatine Kinase 160, Creatine Kinase MB 1.9, Creatine Kinase MB Relative Index 1.19, Troponin I < 0.02, Total Protein 7.7, Albumin 4.4, Albumin/Globulin Ratio 1.3, Lipase 303 10/14/20 20:46: POC Glucose (Misc Panel) 80, POC Sodium (Misc Panel) 118*L, POC Potassium (Misc Panel) 3.7, POC Chloride (Misc Panel) 78L, POC Total CO2 (Misc Panel) 26.0, POC Blood Urea Nitrogen (Misc Panel 20, POC Ionized Calcium (Misc Panel) 4.4L, POC C reatinine (Misc Panel) 1.7H, POC Hematocrit (Misc Panel) 41.0 10/14/20 23:25: Urine Osmolality 155, Urine Random Sodium 30 10/15/20 01:34: Coronavirus (COVID-19)(PCR) NEGATIVE, Influenza Type A (RT-PCR) NEGATIVE, Influenza Type B (RT-PCR) NEGATIVE, Respiratory Syncytial Virus (PCR) NEGATIVE CBC/BMP Laboratory Tests 10/14/20 19:58 Assessment/Plan 1. Dizziness/weakness secondary to symptomatic hyponatremia: CT head nonacute. Sodium 119. -Urine sodium and serum Osmo -1 L normal saline -BMP every 4 hours-caution to not overcorrect more than 8 points in 24 hours -Hold home medicine chlorthalidone -A.m. lab 2. Abdominal pain in setting of chronic gastritis: CT abdomen pelvis nonacute. Symptom management/supportive care. Continue PPI. Monitor for increased GI symptoms for further work-up. 3. Mild SUKUMAR: Previous creatinine 1.29 and patient arrives today 1.45. In setting of gastritis/loose stool episodes and low sodium with chlorthalidone home med- likely pre renal. Patient will receive hydration given above. A.m. labs. Avoid nephrotoxins as able 4. Hypertension: Uncontrolled. Could be elevated given the stress of the ER. However since holding a few of her blood pressure agents given above monitor and consider increased dosages of other medications versus additional ones that will not affect her sodium level. 5. OA and fibromyalgia: Symptom management/supportive care. Avoid nephrotoxins. 6. Obesity: Complicates care DVT: SCD CODE STATUS full Dispo: Home Plan / VTE VTE Prophylaxis Ordered?: Yes SOPHIE BLACK NP Oct 15, 2020 02:30 MARIBELL SHAFER MD Oct 22, 2020 06:29
[2020-10-15 03:30] LABS: MAGNESIUM LEVEL 2.4 MG/DL (1.8-2.4)
[2020-10-15 04:44] LABS: HEMATOCRIT 36.2 % (36.0-47.0); HEMOGLOBIN 13.1 g/dl (12.0-15.5); MEAN CORPUSCULAR HEMOGLOBIN 31.6 pg (27.0-33.0); MEAN CORPUSCULAR HGB CONC 36.2 g/dl (32.0-36.5); MEAN CORPUSCULAR VOLUME 87.4 fl (80.0-96.0); PLATELET COUNT, AUTOMATED 210 10^3/uL (150-450); RED BLOOD COUNT 4.14 10^6/uL (4.00-5.40); WHITE BLOOD COUNT 5.9 10^3/uL (4.0-10.0)
[2020-10-15 05:08] LABS: CALCIUM LEVEL 8.6 MG/DL (8.8-10.2); CREATININE FOR GFR 1.43 MG/DL (0.55-1.30); GLOMERULAR FILTRATION RATE 38.2 (>39); POTASSIUM SERUM 3.6 MEQ/L (3.5-5.1)
[2020-10-15] MEDS ORDERED: LEVOTAB10 PO (05:47)
[2020-10-15] MEDS ORDERED: IRBE300T7 PO (05:47)
[2020-10-15] MEDS ORDERED: VITA500T41 PO (05:47)
[2020-10-15] MEDS ORDERED: NEXI40CA PO (05:47)
[2020-10-15] MEDS ORDERED: BENE1POW5 PO (05:47)
[2020-10-15] MEDS ORDERED: BACITAB PO (05:47)
[2020-10-15] MEDS ORDERED: VITATAB73 PO (05:47)
[2020-10-15] MEDS ORDERED: OYST500T92 PO (05:47)
[2020-10-15] MEDS ORDERED: BENA25CA4 PO (05:47)
[2020-10-15] MEDS ORDERED: PROAAER10 INH (05:47)
[2020-10-15] MEDS ORDERED: MAGN400T3 PO (05:47)
[2020-10-15] MEDS ORDERED: VITMTA PO (05:47)
[2020-10-15] MEDS ORDERED: CVS1CHW13 PO ×2 (05:47)
[2020-10-15] MEDS ORDERED: DIGETAB4 PO (05:47)
[2020-10-15] MEDS ORDERED: FLON1SPR (05:47)
[2020-10-15] MEDS ORDERED: [UNRECOGNIZED DRUG - OTHER] PO (05:47)
[2020-10-15] MEDS ORDERED: METO25TA4 PO (05:47)
[2020-10-15] MEDS ORDERED: CHLO25TA PO (05:47)
[2020-10-15] MEDS ORDERED: HOME MED LIST COMPLETE! XX SCH (05:50)
[2020-10-15 06:00] VITALS: BP 137/63
[2020-10-15] MEDS: ACETAMINOPHEN TAB 650MG DOSE (2X325MG) PO PRN (06:04)
[2020-10-15] MEDS ORDERED: FLUTICASONE PROP 0.05% NASAL SPRAY 16 GM (FLONASE) PRN (06:10)
[2020-10-15] MEDS ORDERED: ALBUTEROL 90 MCG/ACT 8GM HFA INHALER INH PRN (06:10)
--- NOTE | 2020-10-15 07:42 | ECGEPIP ---
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
[2020-10-15] MEDS ORDERED: PREVNAR 13 VACCINE SYRINGE IM ONE (09:00)
[2020-10-15] MEDS ORDERED: PANTOPRAZOLE 40MG TAB (PROTONIX) PO SCH (09:00)
[2020-10-15] MEDS: MULTIVITAMINS/MINERALS THERAP 1 TAB PO SCH (09:21)
[2020-10-15] MEDS: VITAMIN B COMPLEX/VIT C CAP PO SCH (09:22)
[2020-10-15] MEDS: LACTOBACILLUS ACIDOPHILUS CAP (BACID) PO SCH ×2 (09:22→21:24)
[2020-10-15] MEDS: METOPROLOL TART 25 MG TABLET PO SCH ×2 (09:24→21:26)
[2020-10-15] MEDS: MAGNESIUM OXIDE 400MG TAB (MAG-OX) PO SCH ×2 (09:24→21:24)
[2020-10-15 09:45] LABS: CALCIUM LEVEL 8.9 MG/DL (8.8-10.2); CREATININE FOR GFR 1.38 MG/DL (0.55-1.30); GLOMERULAR FILTRATION RATE 39.8 (>39); POTASSIUM SERUM 3.4 MEQ/L (3.5-5.1)
--- NOTE | 2020-10-15 10:16 | REP ---
INDICATION: hyponatremia. COMPARISON: 02/08/2017. TECHNIQUE: CT chest performed without the use of intravenous contrast. Sagittal and coronal reconstruction images are performed. FINDINGS: Lungs: A peripheral nodule in the left lower lobe is again visualized and has mildly increased in size when compared to the prior study. Current diameter is approximately 1.6 cm, previously 1.2 cm. There is a tiny calcified granuloma superiorly in the right lower lobe. Mediastinum: No gross adenopathy. Zeenat: No gross adenopathy. Axilla: No gross adenopathy. Pleura: No effusion. Heart: Not enlarged. Thoracic aorta: No aneurysm. Upper abdominal structures: Prior cholecystectomy. Visualized osseous structures: There are degenerative changes of the spine without compression deformity. IMPRESSION: A peripheral nodule in the left lower lobe is again visualized and has mildly increased in size when compared to the prior study. Current diameter is approximately 1.6 cm, previously 1.2 cm. I suspect this is a slow growing benign nodule, it contains a biopsy clip. Correlate with prior biopsy results. <Electronically signed by Jason Balderrama > 10/15/20 1012
[2020-10-15 13:08] LABS: CALCIUM LEVEL 9.1 MG/DL (8.8-10.2); CREATININE FOR GFR 1.3 MG/DL (0.55-1.30); GLOMERULAR FILTRATION RATE 42.6 (>39); POTASSIUM SERUM 3.1 MEQ/L (3.5-5.1)
[2020-10-15 14:00] VITALS: BP 126/51
[2020-10-15] MEDS ORDERED: MIRALAX *UNIT DOSE* 17GM PACKET PO PRN (15:15)
[2020-10-15] MEDS ORDERED: SENOKOT S TAB PO PRN (15:15)
[2020-10-15] MEDS ORDERED: POTASSIUM CHLORIDE 10 MEQ SR TABLET PO ONE (18:40)
[2020-10-15 20:07] LABS: CALCIUM LEVEL 9.1 MG/DL (8.8-10.2); CREATININE FOR GFR 1.39 MG/DL (0.55-1.30); GLOMERULAR FILTRATION RATE 39.5 (>39); POTASSIUM SERUM 3.6 MEQ/L (3.5-5.1)
[2020-10-15] MEDS: traZODone 50 MG TAB PO PRN (21:24)
[2020-10-15] MEDS: CALCIUM CARBONATE 500 MG CHEW U/D PO PRN (21:24)
[2020-10-15] MEDS: CYANOCOBALAMIN 500 MCG TAB PO SCH (21:24)
[2020-10-15 22:00] VITALS: BP 135/65
[2020-10-15] MEDS ORDERED: PANTOPRAZOLE 40MG VIAL (C9113 PER 1) IV ONE (22:00)
[2020-10-16 06:00] VITALS: BP 133/62
[2020-10-16] MEDS: METOPROLOL TART 25 MG TABLET PO SCH ×2 (08:12→20:04)
[2020-10-16] MEDS: VITAMIN B COMPLEX/VIT C CAP PO SCH (08:13)
[2020-10-16] MEDS: MULTIVITAMINS/MINERALS THERAP 1 TAB PO SCH (08:13)
[2020-10-16] MEDS: PANTOPRAZOLE 40MG TAB (PROTONIX) PO SCH ×2 (08:13→17:31)
[2020-10-16] MEDS: MAGNESIUM OXIDE 400MG TAB (MAG-OX) PO SCH ×2 (08:13→20:04)
[2020-10-16] MEDS: LACTOBACILLUS ACIDOPHILUS CAP (BACID) PO SCH ×2 (08:13→20:03)
[2020-10-16] MEDS: CALCIUM CARBONATE 500 MG CHEW U/D PO PRN ×3 (08:23→19:46)
[2020-10-16] MEDS ORDERED: NS 1,000 ML IV ONE ×2 (08:30→13:40)
[2020-10-16] MEDS ORDERED: ONDANSETRON 4MG/2ML VIAL IV PRN (08:35)
[2020-10-16] MEDS ORDERED: ONDANSETRON 4MG/2ML VIAL IV ONE (08:35)
--- NOTE | 2020-10-16 10:06 | REP ---
INDICATION: NAUSEA/VOMITING ABD DISCOMFORT. COMPARISON: CT 10/14/2020. TECHNIQUE: AP view abdomen and pelvis. FINDINGS: No dilated bowel loops are seen. There is mild air scattered throughout the colon. Metallic clips are seen in the upper abdomen. Phleboliths are seen in the pelvis. There are mild degenerative changes of the spine. IMPRESSION: No evidence of bowel obstruction. <Electronically signed by Jason Balderrama > 10/16/20 1002
--- NOTE | 2020-10-16 12:15 | IPNPDOC ---
Date Seen The patient was seen on 10/16/20. Progress Note SUBJECTIVE: Complains of nausea without headache changes in vision or confusion overnight no seizure activity OBJECTIVE PHYSICAL EXAMINATION: VITAL SIGNS: Please see below. GENERAL: No distress awake alert oriented to person place and time answering questions appropriately HEENT: face is symmetric tongue is midline no JVD no thyromegaly no cervical lymphadenopathy CARDIOVASCULAR: S1-S2 regular rate rhythm RESPIRATORY: Diminished but clear to auscultation no wheezing rales or rhonchi ABDOMINAL: Distended positive bowel sounds no rebound or guarding EXTREMITIES: No cyanosis clubbing or pitting edema NEUROLOGICALLY: Awake alert oriented to person place and time answering questions appropriately speech is fluent tongue is midline uvula is midline no facial droop motor function 5 out of 5 x 4 extremities no sensory disturbance negative Babinski bilaterally LABORATORY DATA, IMAGING STUDIES, MICROBIOLOGY: Please see below. ASSESSMENT AND PLAN: 75-year-old female with a history of gastritis esophagitis hypertension migraines fibromyalgia obstructive sleep apnea on CPAP obesity bilateral osteoarthritis complain of abdominal pain weakness confusion loss of appetite loose stools decrease in appetite recently placed on increasing dose of thiazide diuretic found to have a sodium level 119 in the emergency room. Symptomatic hyponatremia -Improving on IV fluids -CT chest showed healed benign lesion status post biopsy - unlikely to be SIADH after review of urine and serum osmolarity and urine electrolytes Diuretic induced hyponatremia -Discontinued diuretics -Improving on IV fluids Acute kidney injury -Check postvoid residual with bladder scans every 4 hourly -Initially improved with IV fluids -Recheck basic metabolic panel strict I's and O's and monitor urine output -Check postvoid residual Chronic urine retention -If more than 300 postvoid residual may need Flomax 0.4 to 0.8 mg nightly -Outpatient referral to urologist Uncontrolled hypertension -Resumed nondiuretic blood pressure medications - may use Norvasc beta-blockers if no significant bradycardia or direct vasodilators such as nitrates and hydralazine -Due to acute kidney injury avoid PEREZ inhibitors and ARB Obesity BMI of 34.3 -Complicating care Chronic gastritis/esophagitis -On PPI History of migraines History of fibromyalgia ANDREY on CPAP -Complicating care VS, I&O, 24H, Fishbone Vital Signs/I&O Vital Signs Date Time Temp Pulse Resp B/P (MAP) Pulse Ox O2 Delivery O2 Flow Rate FiO2 10/16/20 08:12 80 122/58 10/16/20 06:00 96.6 17 95 Room Air 10/15/20 06:00 2.0 I&O- Last 24 Hours up to 6 AM 10/16/20 06:00 Intake Total 1750 ml Output Total 2350 ml Balance -600 ml Laboratory Data 24H LABS Laboratory Tests 2 10/15/20 12:13: Anion Gap 7L, Glomerular Filtration Rate 42.6, Calcium Level 9.1 10/15/20 19:26: Anion Gap 6L, Glomerular Filtration Rate 39.5, Calcium Level 9.1 CBC/BMP Laboratory Tests 10/15/20 12:13 10/15/20 19:26 DEDRICK CHANEL MD Oct 16, 2020 12:08
[2020-10-16 13:02] LABS: CALCIUM LEVEL 8.8 MG/DL (8.8-10.2); CREATININE FOR GFR 1.49 MG/DL (0.55-1.30); GLOMERULAR FILTRATION RATE 36.4 (>39); POTASSIUM SERUM 4.6 MEQ/L (3.5-5.1)
[2020-10-16] MEDS ORDERED: TOLVAPTAN 7.5 MG HALF-TAB PO ONE (13:35)
[2020-10-16 14:00] VITALS: BP 131/68
[2020-10-16 16:56] LABS: CALCIUM LEVEL 8.3 MG/DL (8.8-10.2); CREATININE FOR GFR 1.37 MG/DL (0.55-1.30); GLOMERULAR FILTRATION RATE 40.1 (>39); POTASSIUM SERUM 4.1 MEQ/L (3.5-5.1)
[2020-10-16] MEDS: NS 1,000 ML IV SCH (18:35)
[2020-10-16] MEDS: CYANOCOBALAMIN 500 MCG TAB PO SCH (20:03)
[2020-10-16 20:04] VITALS: BP 119/59
[2020-10-16 20:34] LABS: CREATININE FOR GFR 1.41 MG/DL (0.55-1.30); GLOMERULAR FILTRATION RATE 38.8 (>39); POTASSIUM SERUM 3.7 MEQ/L (3.5-5.1)
[2020-10-16] MEDS ORDERED: TAMSULOSIN 0.4 MG CAP PO SCH (21:00)
[2020-10-16 22:00] VITALS: BP 124/64
[2020-10-16] MEDS: traZODone 50 MG TAB PO PRN (23:41)
[2020-10-17 00:53] LABS: CREATININE FOR GFR 1.36 MG/DL (0.55-1.30); GLOMERULAR FILTRATION RATE 40.5 (>39); POTASSIUM SERUM 3.7 MEQ/L (3.5-5.1)
[2020-10-17] MEDS: NS 1,000 ML IV SCH (04:15)
[2020-10-17 04:16] LABS: CALCIUM LEVEL 8.3 MG/DL (8.8-10.2); CREATININE FOR GFR 1.19 MG/DL (0.55-1.30); GLOMERULAR FILTRATION RATE 47.2 (>39); POTASSIUM SERUM 3.8 MEQ/L (3.5-5.1)
[2020-10-17] MEDS: ACETAMINOPHEN TAB 650MG DOSE (2X325MG) PO PRN (04:23)
[2020-10-17 06:00] VITALS: BP 130/62
[2020-10-17] MEDS: LACTOBACILLUS ACIDOPHILUS CAP (BACID) PO SCH (09:00)
[2020-10-17] MEDS: VITAMIN B COMPLEX/VIT C CAP PO SCH (09:00)
[2020-10-17] MEDS: MAGNESIUM OXIDE 400MG TAB (MAG-OX) PO SCH (09:00)
[2020-10-17] MEDS: PANTOPRAZOLE 40MG TAB (PROTONIX) PO SCH (09:00)
[2020-10-17] MEDS: MULTIVITAMINS/MINERALS THERAP 1 TAB PO SCH (09:00)
[2020-10-17] MEDS: METOPROLOL TART 25 MG TABLET PO SCH (09:00)
[2020-10-17 09:12] LABS: CALCIUM LEVEL 9.2 MG/DL (8.8-10.2); CREATININE FOR GFR 1.27 MG/DL (0.55-1.30); GLOMERULAR FILTRATION RATE 43.8 (>39); POTASSIUM SERUM 4.2 MEQ/L (3.5-5.1)
[2020-10-17] MEDS: CALCIUM CARBONATE 500 MG CHEW U/D PO PRN (09:45)
[2020-10-17] MEDS ORDERED: NORV5TAB PO (10:47)
--- NOTE | 2020-10-17 10:56 | DS.PDOC ---
Discharge Summary General Date of Admission Oct 15, 2020 at 00:32 Date of Discharge 10/17/20 Discharge Summary DISCHARGE DIAGNOSES: Diuretic induced hyponatremia Symptomatic hyponatremia Acute kidney injury Chronic urine retention Hypertension Gastritis Esophagitis Migraines Obesity BMI of 35.4 DISCHARGE MEDICATIONS: See below DISCHARGE INSTRUCTIONS: Primary care physician and cardiology appointment within 7 days Avoid ARB PEREZ inhibitor and diuretics due to recent hyponatremia unless directed by your doctor Primary care physician to refer to urologist for chronic urine retention HOSPITAL COURSE: 75-year-old female with a history of gastritis esophagitis hypertension migraines fibromyalgia obstructive sleep apnea on CPAP obesity bilateral osteoarthritis complain of abdominal pain weakness confusion loss of appetite loose stools decrease in appetite recently placed on increasing dose of thiazide diuretic found to have a sodium level 119 in the emergency room. Symptomatic hyponatremia -Improved on IV fluids -CT chest showed healed benign lesion status post biopsy - unlikely to be SIADH after review of urine and serum osmolarity and urine electrolytes -Status post 1 dose of Samsca 7.5 mg along with IV fluids with improvement of sodium of 133 on discharge -Mentation is back to baseline Diuretic induced hyponatremia -Discontinued diuretics -Improved on IV fluids Acute kidney injury -Checked postvoid residual with bladder scans every 4 hourly -Initially improved with IV fluids -Rechecked basic metabolic panel with normal creatinine at hospital discharge strict I's and O's and monitor urine output -Primary care to recommend urology follow-up for chronic urine retention Chronic urine retention -Bladder scans were performed during the hospital admission -Patient was tried on Flomax 0.4 mg nightly -Creatinine was normal on discharge -Outpatient referral to urologist Uncontrolled hypertension -Resumed nondiuretic blood pressure medications - may use Norvasc beta-blockers if no significant bradycardia or direct vasodilators such as nitrates and hydralazine -Due to acute kidney injury avoid PEREZ inhibitors and ARB -Stable on metoprolol twice daily Obesity BMI of 34.3 -Complicating care Chronic gastritis/esophagitis -On PPI History of migraines History of fibromyalgia ANDREY on CPAP -Complicating care DISCHARGE PHYSICAL EXAMINATION: VITAL SIGNS: Please see below. GENERAL: No distress awake alert oriented to person place and time answering questions appropriately HEENT: face is symmetric tongue is midline no JVD no thyromegaly no cervical lymphadenopathy CARDIOVASCULAR: S1-S2 regular rate rhythm RESPIRATORY: Diminished but clear to auscultation no wheezing rales or rhonchi ABDOMINAL: Distended positive bowel sounds no rebound or guarding EXTREMITIES: No cyanosis clubbing or pitting edema NEUROLOGICALLY: Awake alert oriented to person place and time answering questions appropriately speech is fluent tongue is midline uvula is midline no facial droop motor f unction 5 out of 5 x 4 extremities no sensory disturbance negative Babinski bilaterally LABORATORY DATA, IMAGING STUDIES, MICROBIOLOGY: Please see below. TIME SPENT ON THE DISCHARGE: 30 MINUTES Vital Signs/I&Os Vital Signs Date Time Temp Pulse Resp B/P (MAP) Pulse Ox O2 Delivery O2 Flow Rate FiO2 10/17/20 06:00 96.5 67 20 130/62 (84) 98 Room Air 10/15/20 06:00 2.0 I&O- Last 24 Hours up to 6 AM 10/17/20 06:00 Intake Total 2950 ml Output Total 2900 ml Balance 50 ml Laboratory Data Labs 24H Laboratory Tests 2 10/16/20 12:39: Anion Gap 6L, Glomerular Filtration Rate 36.4L, Calcium Level 8.8 10/16/20 15:51: Anion Gap 6L, Glomerular Filtration Rate 40.1, Calcium Level 8.3L 10/16/20 19:42: Anion Gap 5L, Glomerular Filtration Rate 38.8L, Calcium Level 9.0 10/17/20 00:07: Anion Gap 6L, Glomerular Filtration Rate 40.5, Calcium Level 8.0L 10/17/20 03:44: Anion Gap 4L, Glomerular Filtration Rate 47.2, Calcium Level 8.3L 10/17/20 08:21: Anion Gap 6L, Glomerular Filtration Rate 43.8, Calcium Level 9.2 CBC/BMP Laboratory Tests 10/16/20 12:39 10/16/20 15:51 10/16/20 19:42 10/17/20 00:07 10/17/20 03:44 10/17/20 08:21 Discharge Medications Scheduled Calcium Carbonate/Vitamin D3 (Calcium 500-Vit D3 200 Tablet) 1 Each Tablet, 1 TAB PO BID, (Reported) Cyanocobalamin (Vitamin B-12) (Vitamin B-12) 500 Mcg Tablet, 500 MCG PO QPM, (Reported) TAKES AT DINNERTIME Digestive 8/L.acidoph/Pectin (Digestive Enzymes Tablet) 1 Each Tablet, 1 TAB PO WM, (Reported) Esomeprazole Magnesium (Nexium) 40 Mg Capsule.dr, 40 MG PO BID, (Reported) Inulin (Fiber Gummies) 2 Gm Tab.chew, 2 CHW PO DAILY, (Reported) Inulin (Fiber Gummies) 2 Gm Tab.chew, 1 CHW PO QPM, (Reported) TAKES AT DINNERTIME L.acidoph/L.bulg/B.bif/S.therm (Bacid Caplet) 1 Each Tablet, 1 TAB PO BID, (Reported) Magnesium Oxide (Magnesium Oxide) 400 Mg Tablet, 400 MG PO BID, (Reported) Metoprolol Tartrate (Metoprolol Tartrate) 25 Mg Tablet, 25 MG PO BID, (Reported) Multivitamins (Thera M Plus Tablet) 1 Each Tablet, 1 TAB PO DAILY, (Reported) Vitamin B Complex (Vitamin B Complex) 1 Each Tablet, 1 TAB PO DAILY, (Reported) Wheat Dextrin (Benefiber) 1 Each Powd.pack, 1 POW PO BID, (Reported) [Glutenease] , 1 TAB PO WM, (Reported) Scheduled PRN Albuterol Sulfate (Proair Hfa) 8.5 Gm Hfa.aer.ad, 2 PUFF INH QID PRN for SHORTNESS OF BREATH, (Reported) Amlodipine Besylate (Norvasc) 5 Mg Tablet, 5 MG PO BIDP PRN for sbp>150 or dbp>90 Diphenhydramine HCl (Benadryl) 25 Mg Capsule, 25 MG PO Q6H PRN for ALLERGY SYMPTOMS, (Reported) Fluticasone Propionate (Flonase Allergy Relief) 9.9 Ml [place].susp, 1 SPRAY NA BID PRN for NASAL CONGESTION, (Reported) Levocetirizine Dihydrochloride (Levocetirizine Dihydrochloride) 5 Mg Tablet, 5 MG PO DAILY PRN for ALLERGY SYMPTOMS, (Reported) Allergies Coded Allergies: NSAIDS (Non-Steroidal Anti-Inflamma (Verified Allergy, Unknown, HIVES, 10/14/20) Penicillins (Verified Allergy, Unknown, HIVES, 10/14/20) [id number] Reductase Inhibitor (Verified Allergy, Unknown, 10/14/20) Sulfa (Sulfonamide Antibiotics) (Verified Allergy, Unknown, HIVES, 10/14/20) aspirin (Verified Allergy, Unknown, HIVES, 10/14/20) azithromycin (Verified Allergy, Unknown, 10/14/20) ciprofloxacin (Verified Allergy, Unknown, 10/14/20) doxycycline (Verified Allergy, Unknown, 10/14/20) iodine (Verified Allergy, Unknown, 10/14/20) levofloxacin (Verified Allergy, Unknown, 10/14/20) naproxen (Verified Allergy, Unknown, HIVES, 10/14/20) sucralfate (Verified Allergy, Unknown, 10/14/20) DEDRICK CHANEL MD Oct 17, 2020 10:56
== END 2020-10-17 11:00 | disposition home or self-care (01) | DRG 641 ==
LOC: EDBD 18:13 → M ED 18:13 → M ED INP 10-15 00:32 → M MSPAV 10-15 03:06
PROVIDERS: ADMIT Internal Medicine; ATTEND General Practice
DX: E87.1 Hypo-osmolality and hyponatremia (principal); N17.9 Acute kidney failure, unspecified; K29.50 Unspecified chronic gastritis without bleeding; G43.909 Migraine, unspecified, not intractable, without status migrainosus; I10 Essential (primary) hypertension; E66.9 Obesity, unspecified; Z68.35 Body mass index [BMI] 35.0-35.9, adult; M79.7 Fibromyalgia; G47.33 Obstructive sleep apnea (adult) (pediatric); Z79.899 Other long term (current) drug therapy; Z79.4 Long term (current) use of insulin; Z88.0 Allergy status to penicillin; Z88.2 Allergy status to sulfonamides; Z88.8 Allergy status to other drugs, medicaments and biological substances; Z88.6 Allergy status to analgesic agent; M17.0 Bilateral primary osteoarthritis of knee

== ENCOUNTER → 2020-10-24 | Outpatient (REF) | payer MEDICARE ==
[~2020-10-24] MED LIST changes: +BACITAB PO; +BENA25CA4 PO; +BENE1POW5 PO; +CHLO25TA PO; +CVS1CHW13 PO; +DIGETAB4 PO; +FLON1SPR; +IRBE300T7 PO; +LEVOTAB10 PO; +MAGN400T3 PO; +METO25TA4 PO; +NEXI40CA PO; +NORV5TAB PO; +OYST500T92 PO; +PROAAER10 INH; +VITA500T41 PO; +VITATAB73 PO; +VITMTA PO; +[UNRECOGNIZED DRUG - OTHER] PO
[2020-10-24 18:35] LABS: BILIRUBIN,TOTAL 0.5 MG/DL (0.2-1.0); CALCIUM LEVEL 9.4 MG/DL (8.8-10.2); CHOLESTEROL RISK RATIO 3.4 (<5); CREATININE FOR GFR 1.42 MG/DL (0.55-1.30); GLOMERULAR FILTRATION RATE 38.5 (>39); POTASSIUM SERUM 4.9 MEQ/L (3.5-5.1)
[2020-10-24 18:36] LABS: ALBUMIN 3.8 GM/DL (3.2-5.2); TOTAL PROTEIN 7.1 GM/DL (6.4-8.2)
== END ==
LOC: M SFHCADAM 14:11
PROVIDERS: ATTEND Physician Assistant
DX: I11.9 Hypertensive heart disease without heart failure (principal); E87.1 Hypo-osmolality and hyponatremia; E78.5 Hyperlipidemia, unspecified

== ENCOUNTER → 2020-11-07 | Outpatient (REF) | payer MEDICARE | LOC: M SFHCADAM 14:04 | PROVIDERS: ATTEND Family Medicine | DX: R30.0 Dysuria (principal) ==

== ENCOUNTER → 2020-11-22 | Outpatient (REF) | payer MEDICARE ==
[2020-11-22 18:40] LABS: CALCIUM LEVEL 9.5 MG/DL (8.8-10.2); CREATININE FOR GFR 1.5 MG/DL (0.55-1.30); GLOMERULAR FILTRATION RATE 36.1 (>39)
== END ==
LOC: M SFHCADAM 15:13
PROVIDERS: ATTEND Family Medicine
DX: E87.1 Hypo-osmolality and hyponatremia (principal)

== ENCOUNTER → 2020-12-12 | Outpatient (CLI) | payer MEDICARE | LOC: M LABSMTC 11:11 | PROVIDERS: ATTEND Pediatrics | DX: Z20.822 Contact with and (suspected) exposure to COVID-19 (principal) | CPT/HCPCS: C9803; U0003 ==

== ENCOUNTER → 2021-02-28 | Outpatient (REF) ==
[~2021-02-28] MED LIST changes: -MAGN400T3 PO; +MAGN400T33 PO
== END ==
LOC: M LABSMTC 13:21
PROVIDERS: ATTEND Pediatrics
DX: Z11.52 Encounter for screening for COVID-19 (principal); Z20.822 Contact with and (suspected) exposure to COVID-19

== ENCOUNTER → 2021-05-28 | Outpatient (REF) | payer MEDICARE ==
[2021-05-28 17:56] LABS: HEMATOCRIT 34.7 % (36.0-47.0); HEMOGLOBIN 11.6 g/dl (12.0-15.5); MEAN CORPUSCULAR HEMOGLOBIN 31.5 pg (27.0-33.0); MEAN CORPUSCULAR HGB CONC 33.4 g/dl (32.0-36.5); MEAN CORPUSCULAR VOLUME 94.3 fl (80.0-96.0); PLATELET COUNT, AUTOMATED 231 10^3/uL (150-450); RED BLOOD COUNT 3.68 10^6/uL (4.00-5.40); WHITE BLOOD COUNT 5.5 10^3/uL (4.0-10.0)
[2021-05-28 18:35] LABS: ALBUMIN 3.8 GM/DL (3.2-5.2); CREATININE FOR GFR 1.48 MG/DL (0.55-1.30); FREE T4 0.81 NG/DL (0.76-1.46); GLOMERULAR FILTRATION RATE 36.6 (>39); POTASSIUM SERUM 4.2 MEQ/L (3.5-5.1); THYROID STIMULATING HORMONE 1.14 uIU/ML (0.358-3.740)
== END ==
LOC: M SFHCADAM 15:40
PROVIDERS: ATTEND Family Medicine
DX: B34.9 Viral infection, unspecified (principal); R53.83 Other fatigue; E78.5 Hyperlipidemia, unspecified; Z78.9 Other specified health status; F43.21 Adjustment disorder with depressed mood

== ENCOUNTER → 2021-07-21 | Outpatient (REF) | payer MEDICARE ==
[2021-07-21 17:17] LABS: HEMATOCRIT 36.9 % (36.0-47.0); MEAN CORPUSCULAR HEMOGLOBIN 31.5 pg (27.0-33.0); MEAN CORPUSCULAR HGB CONC 32.5 g/dl (32.0-36.5); MEAN CORPUSCULAR VOLUME 96.9 fl (80.0-96.0); PLATELET COUNT, AUTOMATED 265 10^3/uL (150-450); RED BLOOD COUNT 3.81 10^6/uL (4.00-5.40); WHITE BLOOD COUNT 4.4 10^3/uL (4.0-10.0)
[2021-07-21 17:52] LABS: ALBUMIN 3.8 GM/DL (3.2-5.2); BILIRUBIN,TOTAL 0.6 MG/DL (0.2-1.0); CALCIUM LEVEL 9.6 MG/DL (8.8-10.2); CREATININE FOR GFR 1.38 MG/DL (0.55-1.30); FREE T4 0.73 NG/DL (0.76-1.46); GLOMERULAR FILTRATION RATE 39.7 (>39); MAGNESIUM LEVEL 2.4 MG/DL (1.8-2.4); PERCENT SATURATION 17.8 % (13.2-45.0); POTASSIUM SERUM 4.9 MEQ/L (3.5-5.1); THYROID STIMULATING HORMONE 1.16 uIU/ML (0.358-3.740)
[2021-07-21 18:07] LABS: HEMOGLOBIN A1c 5.6 %
== END ==
LOC: M SFHCADAM 11:45
PROVIDERS: ATTEND Family Medicine
DX: R26.89 Other abnormalities of gait and mobility (principal); N18.32 Chronic kidney disease, stage 3b; D63.1 Anemia in chronic kidney disease; E53.8 Deficiency of other specified B group vitamins; I11.9 Hypertensive heart disease without heart failure; Z79.899 Other long term (current) drug therapy

== ENCOUNTER → 2021-09-10 | Outpatient (REF) | payer MEDICARE ==
[2021-09-10 13:27] LABS: HEMATOCRIT 35.6 % (36.0-47.0); HEMOGLOBIN 11.8 g/dl (12.0-15.5); MEAN CORPUSCULAR HEMOGLOBIN 32.6 pg (27.0-33.0); MEAN CORPUSCULAR HGB CONC 33.1 g/dl (32.0-36.5); MEAN CORPUSCULAR VOLUME 98.3 fl (80.0-96.0); PLATELET COUNT, AUTOMATED 226 10^3/uL (150-450); RED BLOOD COUNT 3.62 10^6/uL (4.00-5.40); WHITE BLOOD COUNT 5.2 10^3/uL (4.0-10.0)
[2021-09-10 14:56] LABS: ALBUMIN 3.8 GM/DL (3.2-5.2); BILIRUBIN,TOTAL 0.6 MG/DL (0.2-1.0); CALCIUM LEVEL 9.6 MG/DL (8.8-10.2); CHOLESTEROL RISK RATIO 3.309 (<5); CREATININE FOR GFR 1.45 MG/DL (0.55-1.30); GLOMERULAR FILTRATION RATE 37.5 (>39)
== END ==
LOC: M SFHCADAM 09:13
PROVIDERS: ATTEND Family Medicine
DX: I11.9 Hypertensive heart disease without heart failure (principal); N18.32 Chronic kidney disease, stage 3b; E78.5 Hyperlipidemia, unspecified

== ENCOUNTER → 2022-02-12 | Outpatient (REF) | payer MEDICARE ==
[~2022-02-12] MED LIST changes: +ALBU8.5H INH; +RISATAB3 PO
[2022-02-12 14:22] LABS: HEMATOCRIT 38.6 % (36.0-47.0); HEMOGLOBIN 12.6 g/dl (12.0-15.5); MEAN CORPUSCULAR HEMOGLOBIN 31.9 pg (27.0-33.0); MEAN CORPUSCULAR HGB CONC 32.6 g/dl (32.0-36.5); MEAN CORPUSCULAR VOLUME 97.7 fl (80.0-96.0); PLATELET COUNT, AUTOMATED 244 10^3/uL (150-450); RED BLOOD COUNT 3.95 10^6/uL (4.00-5.40); WHITE BLOOD COUNT 5.7 10^3/uL (4.0-10.0)
[2022-02-12 14:46] LABS: ALKALINE PHOSPHATASE 78 U/L (46-116); ALT/SGPT 24 U/L (7.0-40); AST/SGOT 26 U/L (<34); BILIRUBIN,TOTAL 0.9 MG/DL (0.3-1.2); BLOOD UREA NITROGEN 31 MG/DL (9-23); CALCIUM LEVEL 9.7 MG/DL (8.3-10.6); CARBON DIOXIDE LEVEL 29 MMOL/L (20-31); CHLORIDE LEVEL 97 MMOL/L (98-107); CHOLESTEROL LEVEL 212 MG/DL (<200); CHOLESTEROL RISK RATIO 3.94 (<5); CREATININE FOR GFR 1.65 MG/DL (0.55-1.30); GLOMERULAR FILTRATION RATE 32.2 (>39); GLUCOSE, FASTING 101 MG/DL (74-106); HDL CHOLESTEROL 53.7 MG/DL (>40); LDL CHOLESTEROL 126.3 MG/DL (<100); NON-HDL-C 158 MG/DL; POTASSIUM SERUM 3.9 MMOL/L (3.5-5.1); SODIUM LEVEL 137 MMOL/L (136-145); TOTAL PROTEIN 7.6 G/DL (5.7-8.2); TRIGLYCERIDES LEVEL 160 MG/DL (<150)
[2022-02-12 14:49] LABS: VITAMIN B12 LEVEL 1420 PG/ML (211-911)
[2022-02-12 14:50] LABS: FOLATE > 24.00 NG/ML (>5.4)
== END ==
LOC: M SFHCADAM 10:12
PROVIDERS: ATTEND Family Medicine
DX: E78.5 Hyperlipidemia, unspecified (principal); N18.32 Chronic kidney disease, stage 3b; E53.8 Deficiency of other specified B group vitamins

== ENCOUNTER → 2022-04-07 | Outpatient (REF) | payer MEDICARE ==
[2022-04-07 18:25] LABS: HEMATOCRIT 38.4 % (36.0-47.0); HEMOGLOBIN 12.6 g/dl (12.0-15.5); MEAN CORPUSCULAR HGB CONC 32.8 g/dl (32.0-36.5); MEAN CORPUSCULAR VOLUME 97.5 fl (80.0-96.0); PLATELET COUNT, AUTOMATED 304 10^3/uL (150-450); RED BLOOD COUNT 3.94 10^6/uL (4.00-5.40); WHITE BLOOD COUNT 8.4 10^3/uL (4.0-10.0)
[2022-04-07 19:06] LABS: ALBUMIN 4.1 G/DL (3.2-5.2); ALKALINE PHOSPHATASE 86 U/L (46-116); ALT/SGPT 35 U/L (7.0-40); AST/SGOT 34 U/L (<34); BILIRUBIN,TOTAL 0.8 MG/DL (0.3-1.2); BLOOD UREA NITROGEN 21 MG/DL (9-23); CALCIUM LEVEL 9.4 MG/DL (8.3-10.6); CARBON DIOXIDE LEVEL 31 MMOL/L (20-31); CHLORIDE LEVEL 96 MMOL/L (98-107); CREATININE FOR GFR 1.71 MG/DL (0.55-1.30); FREE T4 1.16 NG/DL (0.89-1.76); GLOMERULAR FILTRATION RATE 30.9 (>39); GLUCOSE, FASTING 107 MG/DL (74-106); MAGNESIUM LEVEL 2.2 MG/DL (1.8-2.4); SODIUM LEVEL 137 MMOL/L (136-145); THYROID STIMULATING HORMONE 1.778 uIU/ML (0.55-4.78); TOTAL PROTEIN 7.6 G/DL (5.7-8.2); VITAMIN B12 LEVEL 808 PG/ML (211-911)
[2022-04-07 19:23] LABS: FOLATE > 24.00 NG/ML (>5.4)
== END ==
LOC: M SFHCADAM 15:35
PROVIDERS: ATTEND Family Medicine
DX: E87.6 Hypokalemia (principal); R25.1 Tremor, unspecified; K52.9 Noninfective gastroenteritis and colitis, unspecified; N18.32 Chronic kidney disease, stage 3b; D63.1 Anemia in chronic kidney disease; E53.8 Deficiency of other specified B group vitamins

== ENCOUNTER → 2022-07-01 | Outpatient (REF) | payer MEDICARE ==
[2022-07-01 13:41] LABS: BASO # 0.1 10^3/uL (0.0-0.2); BASO % 0.5 % (0.0-1.0); EOS # 0.2 10^3/uL (0.0-0.5); EOS % 2.4 % (0.0-3.0); HEMATOCRIT 40.9 % (36.0-47.0); HEMOGLOBIN 13.8 g/dl (12.0-15.5); LYMPH # 2.1 10^3/uL (1.5-5.0); LYMPH % 21.7 % (24.0-44.0); MEAN CORPUSCULAR HEMOGLOBIN 31.8 pg (27.0-33.0); MEAN CORPUSCULAR HGB CONC 33.7 g/dl (32.0-36.5); MEAN CORPUSCULAR VOLUME 94.2 fl (80.0-96.0); MONO # 0.8 10^3/uL (0.0-0.8); NEUTROPHILS # 6.6 10^3/uL (1.5-8.5); PLATELET COUNT, AUTOMATED 267 10^3/uL (150-450); RED BLOOD COUNT 4.34 10^6/uL (4.00-5.40); WHITE BLOOD COUNT 9.9 10^3/uL (4.0-10.0)
[2022-07-01 14:10] LABS: CALCIUM LEVEL 10.3 MG/DL (8.3-10.6); CREATININE FOR GFR 2.11 MG/DL (0.55-1.30); GLOMERULAR FILTRATION RATE 24.2 (>39); POTASSIUM SERUM 3.2 MMOL/L (3.5-5.1)
== END ==
LOC: M SFHCADAM 11:38
PROVIDERS: ATTEND Physician Assistant
DX: R53.83 Other fatigue (principal); I13.10 Hypertensive heart and chronic kidney disease without heart failure, with stage 1 through stage 4 chronic kidney disease, or unspecified chronic kidney disease

== ENCOUNTER → 2022-07-10 | Outpatient (REF) | payer MEDICARE ==
[2022-07-10 15:45] LABS: CALCIUM LEVEL 9.1 MG/DL (8.3-10.6); CREATININE FOR GFR 1.51 MG/DL (0.55-1.30); GLOMERULAR FILTRATION RATE 35.7 (>39); POTASSIUM SERUM 3.6 MMOL/L (3.5-5.1)
== END ==
LOC: M SFHCADAM 11:36
PROVIDERS: ATTEND Physician Assistant
DX: E87.6 Hypokalemia (principal)

== ENCOUNTER → 2022-10-09 | Outpatient (REF) | payer MEDICARE ==
[2022-10-09 13:16] LABS: HEMOGLOBIN 12.2 g/dl (12.0-15.5); MEAN CORPUSCULAR HEMOGLOBIN 31.2 pg (27.0-33.0); MEAN CORPUSCULAR HGB CONC 32.1 g/dl (32.0-36.5); MEAN CORPUSCULAR VOLUME 97.2 fl (80.0-96.0); PLATELET COUNT, AUTOMATED 227 10^3/uL (150-450); RED BLOOD COUNT 3.91 10^6/uL (4.00-5.40); WHITE BLOOD COUNT 6.5 10^3/uL (4.0-10.0)
[2022-10-09 14:02] LABS: CALCIUM LEVEL 9.5 MG/DL (8.3-10.6); CREATININE FOR GFR 1.48 MG/DL (0.55-1.30); GLOMERULAR FILTRATION RATE 36.5 (>39); POTASSIUM SERUM 4.4 MMOL/L (3.5-5.1)
== END ==
LOC: M SFHCADAM 11:29
PROVIDERS: ATTEND Family Medicine
DX: N18.32 Chronic kidney disease, stage 3b (principal); I12.9 Hypertensive chronic kidney disease with stage 1 through stage 4 chronic kidney disease, or unspecified chronic kidney disease

== ENCOUNTER → 2022-10-13 | Outpatient (REF) | payer MEDICARE ==
[2022-10-13 12:44] LABS: ALBUMIN 4.1 G/DL (3.2-5.2); BILIRUBIN,TOTAL 0.8 MG/DL (0.3-1.2); CREATININE FOR GFR 1.61 MG/DL (0.55-1.30); GLOMERULAR FILTRATION RATE 33.1 (>39); MAGNESIUM LEVEL 2.2 MG/DL (1.8-2.4); POTASSIUM SERUM 4.5 MMOL/L (3.5-5.1); THYROID STIMULATING HORMONE 2.6 uIU/ML (0.55-4.78); TOTAL PROTEIN 7.6 G/DL (5.7-8.2)
[2022-10-13 12:45] LABS: FREE T4 1.05 NG/DL (0.89-1.76)
== END ==
LOC: M SFHCADAM 10:38
PROVIDERS: ATTEND Family Medicine
DX: G25.2 Other specified forms of tremor (principal); I11.9 Hypertensive heart disease without heart failure

== ENCOUNTER → 2022-12-24 | Outpatient (CLI) | payer MEDICARE | LOC: M ADAMS 08:28 | PROVIDERS: ATTEND Physician Assistant Medical | DX: M16.11 Unilateral primary osteoarthritis, right hip (principal); M47.816 Spondylosis without myelopathy or radiculopathy, lumbar region; M51.36 Other intervertebral disc degeneration, lumbar region ==

== ENCOUNTER → 2023-01-05 | Outpatient (REF) | payer MEDICARE ==
[2023-01-05 13:48] LABS: HEMATOCRIT 40.4 % (36.0-47.0); HEMOGLOBIN 13.3 g/dl (12.0-15.5); MEAN CORPUSCULAR HEMOGLOBIN 31.4 pg (27.0-33.0); MEAN CORPUSCULAR HGB CONC 32.9 g/dl (32.0-36.5); MEAN CORPUSCULAR VOLUME 95.5 fl (80.0-96.0); PLATELET COUNT, AUTOMATED 204 10^3/uL (150-450); RED BLOOD COUNT 4.23 10^6/uL (4.00-5.40)
[2023-01-05 14:13] LABS: CALCIUM LEVEL 9.9 MG/DL (8.3-10.6); CHOLESTEROL RISK RATIO 5.37 (<5); CREATININE FOR GFR 1.53 MG/DL (0.55-1.30); GLOMERULAR FILTRATION RATE 35.1 (>39); HDL CHOLESTEROL 53.6 MG/DL (>40); LDL CHOLESTEROL 184.8 MG/DL (<100); NON-HDL-C 234.4 MG/DL; POTASSIUM SERUM 4.4 MMOL/L (3.5-5.1); TOTAL PROTEIN 7.3 G/DL (5.7-8.2)
[2023-01-05 14:18] LABS: FREE T4 0.89 NG/DL (0.89-1.76)
[2023-01-05 14:21] LABS: THYROID STIMULATING HORMONE 2.386 uIU/ML (0.55-4.78)
== END ==
LOC: M SFHCADAM 10:43
PROVIDERS: ATTEND Family Medicine
DX: E78.5 Hyperlipidemia, unspecified (principal); Z68.35 Body mass index [BMI] 35.0-35.9, adult; I11.9 Hypertensive heart disease without heart failure; N18.32 Chronic kidney disease, stage 3b

== ENCOUNTER → 2023-07-29 | Outpatient (REF) | payer MEDICARE ==
[~2023-07-29] MED LIST changes: +IRBE300T25 PO; -IRBE300T7 PO
== END ==
LOC: M SFHCDERM 13:33
PROVIDERS: ATTEND Nurse Practitioner Family
DX: L57.0 Actinic keratosis (principal)

== ENCOUNTER → 2023-09-21 | Outpatient (REF) | payer MEDICARE ==
[2023-09-21 13:23] LABS: BASO % 0.5 % (0.0-1.0); EOS # 0.3 10^3/uL (0.0-0.5); EOS % 4.1 % (0.0-3.0); HEMATOCRIT 40.7 % (36.0-47.0); HEMOGLOBIN 13.2 g/dl (12.0-15.5); LYMPH # 2.1 10^3/uL (1.5-5.0); LYMPH % 33.2 % (24.0-44.0); MEAN CORPUSCULAR HGB CONC 32.4 g/dl (32.0-36.5); MEAN CORPUSCULAR VOLUME 98.5 fl (80.0-96.0); MONO # 0.6 10^3/uL (0.0-0.8); MONO % 8.8 % (2.0-8.0); NEUTROPHILS # 3.3 10^3/uL (1.5-8.5); NEUTROPHILS % 52.3 % (36.0-66.0); PLATELET COUNT, AUTOMATED 211 10^3/uL (150-450); RED BLOOD COUNT 4.13 10^6/uL (4.00-5.40); WHITE BLOOD COUNT 6.3 10^3/uL (4.0-10.0)
[2023-09-21 13:24] LABS: BILIRUBIN,TOTAL 0.7 MG/DL (0.3-1.2); CALCIUM LEVEL 9.5 MG/DL (8.3-10.6); CHOLESTEROL RISK RATIO 4.65 (<5); CREATININE FOR GFR 1.65 MG/DL (0.55-1.30); GLOMERULAR FILTRATION RATE 32.1 (>39); HDL CHOLESTEROL 50.1 MG/DL (>40); LDL CHOLESTEROL 140.7 MG/DL (<100); NON-HDL-C 182.9 MG/DL; POTASSIUM SERUM 4.2 MMOL/L (3.5-5.1)
[2023-09-21 13:31] LABS: HEMOGLOBIN A1c 5.5 % (4.0-6.0)
== END ==
LOC: M SFHCADAM 09:58
PROVIDERS: ATTEND Family Medicine
DX: L30.2 Cutaneous autosensitization (principal); R73.03 Prediabetes; E78.5 Hyperlipidemia, unspecified

== ENCOUNTER → 2023-09-23 | Outpatient (REF) | payer MEDICARE ==
[2023-09-23 13:34] LABS: VITAMIN B12 LEVEL 514 PG/ML (211-911)
[2023-09-23 13:36] LABS: FERRITIN 47.1 NG/ML (7.3-270.7); THYROID STIMULATING HORMONE 2.664 uIU/ML (0.55-4.78)
[2023-09-23 13:38] LABS: FREE T4 1.11 NG/DL (0.89-1.76)
[2023-09-23 13:39] LABS: FOLATE > 24.00 NG/ML (>5.4)
[2023-09-24 18:53] LABS: PROTEIN, TOTAL SO 7.3 g/dL (6.1-8.1)
[2023-09-28 09:38] LABS: ALBUMIN SO 4.4 g/dL (3.8-4.8); ALPHA 1 GLOBULINS SO 0.2 g/dL (0.2-0.3); ALPHA 2 GLOBULINS SO 0.8 g/dL (0.5-0.9); BETA 2 GLOBULIN SO 0.4 g/dL (0.2-0.5); BETA GLOBULIN SO 0.5 g/dL (0.4-0.6); SPEP IFE ABN PROTEIN BAND 1 0.4 g/dL (NONE DETECTED)
== END ==
LOC: M SFHCADAM 08:42
PROVIDERS: ATTEND Family Medicine
DX: I11.9 Hypertensive heart disease without heart failure (principal); E53.8 Deficiency of other specified B group vitamins; R53.83 Other fatigue; D47.2 Monoclonal gammopathy; E78.5 Hyperlipidemia, unspecified; N18.32 Chronic kidney disease, stage 3b

== ENCOUNTER → 2023-11-17 | Outpatient (CLI) | payer MEDICARE | LOC: M PLAIMG 10:33 | PROVIDERS: ATTEND Family Medicine | DX: I11.9 Hypertensive heart disease without heart failure (principal); I34.0 Nonrheumatic mitral (valve) insufficiency ==

== ENCOUNTER → 2024-01-11 | Outpatient (REF) | payer MEDICARE ==
[2024-01-11 13:39] LABS: HEMATOCRIT 42.5 % (36.0-47.0); HEMOGLOBIN 13.7 g/dl (12.0-15.5); MEAN CORPUSCULAR HGB CONC 32.2 g/dl (32.0-36.5); MEAN CORPUSCULAR VOLUME 96.2 fl (80.0-96.0); PLATELET COUNT, AUTOMATED 234 10^3/uL (150-450); RED BLOOD COUNT 4.42 10^6/uL (4.00-5.40); WHITE BLOOD COUNT 6.5 10^3/uL (4.0-10.0)
[2024-01-11 14:07] LABS: ALBUMIN 4.1 G/DL (3.2-5.2); BILIRUBIN,TOTAL 0.8 MG/DL (0.3-1.2); CALCIUM LEVEL 10.2 MG/DL (8.3-10.6); CHOLESTEROL RISK RATIO 3.98 (<5); CREATININE FOR GFR 1.42 MG/DL (0.55-1.30); GLOMERULAR FILTRATION RATE 38.2 (>39); HDL CHOLESTEROL 49.9 MG/DL (>40); LDL CHOLESTEROL 102.5 MG/DL (<100); NON-HDL-C 149.1 MG/DL; POTASSIUM SERUM 4.6 MMOL/L (3.5-5.1); TOTAL PROTEIN 7.5 G/DL (5.7-8.2)
== END ==
LOC: M SFHCADAM 10:42
PROVIDERS: ATTEND Family Medicine
DX: N18.32 Chronic kidney disease, stage 3b (principal); E78.5 Hyperlipidemia, unspecified

== ENCOUNTER → 2024-02-01 | Outpatient (CLI) | payer MEDICARE ==
[2024-02-01 17:19] LABS: BASO % 0.6 % (0.0-1.0); EOS # 0.2 10^3/uL (0.0-0.5); EOS % 3.4 % (0.0-3.0); HEMATOCRIT 41.8 % (36.0-47.0); HEMOGLOBIN 13.4 g/dl (12.0-15.5); LYMPH # 1.9 10^3/uL (1.5-5.0); MEAN CORPUSCULAR HEMOGLOBIN 30.5 pg (27.0-33.0); MEAN CORPUSCULAR HGB CONC 32.1 g/dl (32.0-36.5); MEAN CORPUSCULAR VOLUME 95.2 fl (80.0-96.0); MONO # 0.4 10^3/uL (0.0-0.8); MONO % 6.2 % (2.0-8.0); NEUTROPHILS # 4.5 10^3/uL (1.5-8.5); NEUTROPHILS % 63.5 % (36.0-66.0); PLATELET COUNT, AUTOMATED 208 10^3/uL (150-450); RED BLOOD COUNT 4.39 10^6/uL (4.00-5.40); WHITE BLOOD COUNT 7.1 10^3/uL (4.0-10.0)
[2024-02-01 17:20] LABS: ALBUMIN 4.1 G/DL (3.2-5.2)
[2024-02-01 17:27] LABS: PERCENT SATURATION 20.4 % (13.2-45.0)
[2024-02-01 17:28] LABS: FERRITIN 35.7 NG/ML (7.3-270.7)
== END ==
LOC: M WUC 13:43
PROVIDERS: ATTEND Orthopaedic Surgery
DX: M25.562 Pain in left knee (principal); M17.12 Unilateral primary osteoarthritis, left knee

== ENCOUNTER → 2024-02-06 | Outpatient (CLI) | payer MEDICARE | LOC: M RAD 14:36 | PROVIDERS: ATTEND Registered Nurse | DX: J06.9 Acute upper respiratory infection, unspecified (principal) ==

== ENCOUNTER → 2024-02-06 | Outpatient (REF) | payer MEDICARE | LOC: M LAB REF 19:02 | PROVIDERS: ATTEND Registered Nurse | DX: J06.9 Acute upper respiratory infection, unspecified (principal) ==

== ENCOUNTER → 2024-02-06 | Outpatient (REF) | payer MEDICARE | LOC: M LAB REF 19:05 | PROVIDERS: ATTEND Registered Nurse | DX: J06.9 Acute upper respiratory infection, unspecified (principal); Z53.9 Procedure and treatment not carried out, unspecified reason ==

== ENCOUNTER → 2024-04-28 | Outpatient (REF) | payer MEDICARE ==
[2024-04-28 17:03] LABS: BASO % 0.7 % (0.0-1.0); EOS # 0.2 10^3/uL (0.0-0.5); HEMATOCRIT 42.4 % (36.0-47.0); HEMOGLOBIN 13.8 g/dl (12.0-15.5); LYMPH % 33.6 % (24.0-44.0); MEAN CORPUSCULAR HEMOGLOBIN 30.6 pg (27.0-33.0); MEAN CORPUSCULAR HGB CONC 32.5 g/dl (32.0-36.5); MONO # 0.5 10^3/uL (0.0-0.8); MONO % 7.4 % (2.0-8.0); NEUTROPHILS # 3.3 10^3/uL (1.5-8.5); NEUTROPHILS % 54.8 % (36.0-66.0); PLATELET COUNT, AUTOMATED 213 10^3/uL (150-450); RED BLOOD COUNT 4.51 10^6/uL (4.00-5.40); WHITE BLOOD COUNT 6.1 10^3/uL (4.0-10.0)
[2024-04-28 17:14] LABS: ALBUMIN 4.3 G/DL (3.2-5.2); BILIRUBIN,TOTAL 0.9 MG/DL (0.3-1.2); CALCIUM LEVEL 10.1 MG/DL (8.3-10.6); CHOLESTEROL RISK RATIO 3.45 (<5); CREATININE FOR GFR 1.35 MG/DL (0.55-1.30); GLOMERULAR FILTRATION RATE 40.4 (>39); HDL CHOLESTEROL 59.1 MG/DL (>40); LDL CHOLESTEROL 107.9 MG/DL (<100); NON-HDL-C 144.9 MG/DL; POTASSIUM SERUM 4.3 MMOL/L (3.5-5.1); TOTAL PROTEIN 7.9 G/DL (5.7-8.2)
[2024-04-28 17:19] LABS: INR 0.99; PROTHROMBIN TIME 13.4 SECONDS (12.5-14.5)
== END ==
LOC: M SFHCADAM 14:02
PROVIDERS: ATTEND Family Medicine
DX: Z01.818 Encounter for other preprocedural examination (principal); E78.5 Hyperlipidemia, unspecified

== ENCOUNTER → 2024-07-13 | Outpatient (REF) | payer MEDICARE ==
[2024-07-13 13:52] LABS: THYROID STIMULATING HORMONE 2.323 uIU/ML (0.55-4.78)
[2024-07-13 13:56] LABS: BILIRUBIN,TOTAL 0.9 MG/DL (0.3-1.2); CALCIUM LEVEL 9.7 MG/DL (8.3-10.6); CREATININE FOR GFR 1.45 MG/DL (0.55-1.30); GLOMERULAR FILTRATION RATE 36.9 (>39); POTASSIUM SERUM 4.5 MMOL/L (3.5-5.1); TOTAL PROTEIN 7.4 G/DL (5.7-8.2)
== END ==
LOC: M SFHCADAM 10:06
PROVIDERS: ATTEND Family Medicine
DX: N18.32 Chronic kidney disease, stage 3b (principal); Z79.899 Other long term (current) drug therapy

== ENCOUNTER → 2024-10-02 | Outpatient (CLI) | payer MEDICARE ==
[2024-10-02 17:02] LABS: ALT/SGPT 22.0 U/L (7.0-40); AST/SGOT 29.0 U/L (<34); CALCIUM LEVEL 10.4 MG/DL (8.3-10.6); CARBON DIOXIDE LEVEL 31.0 MMOL/L (20-31); CHLORIDE LEVEL 100.0 MMOL/L (98-107); CREATININE FOR GFR 1.5 MG/DL (0.55-1.30); GLOMERULAR FILTRATION RATE 35.5 (>39); POTASSIUM SERUM 4.5 MMOL/L (3.5-5.1); SODIUM LEVEL 142.0 MMOL/L (136-145)
[2024-10-02 17:06] LABS: IRON (FE) 64.0 UG/DL (50-170); PERCENT SATURATION 17.4 % (13.2-45.0)
[2024-10-02 17:07] LABS: INR 0.9
[2024-10-02 17:08] LABS: BASO # 0.0 10^3/uL (0.0-0.2); BASO % 0.4 % (0.0-1.0); EOS # 0.2 10^3/uL (0.0-0.5); EOS % 2.7 % (0.0-3.0); LYMPH # 1.7 10^3/uL (1.5-5.0); LYMPH % 25.2 % (24.0-44.0); MONO # 0.4 10^3/uL (0.0-0.8); MONO % 6.5 % (2.0-8.0); NEUTROPHILS # 4.4 10^3/uL (1.5-8.5); NEUTROPHILS % 64.8 % (36.0-66.0); PLATELET COUNT, AUTOMATED 223 10^3/uL (150-450)
== END ==
LOC: M LABDRWAD 12:04
PROVIDERS: ATTEND Orthopaedic Surgery
DX: Z01.818 Encounter for other preprocedural examination (principal); M25.562 Pain in left knee

== ENCOUNTER → 2024-10-26 | Outpatient (REF) | payer MEDICARE ==
[2024-10-26 13:35] LABS: FREE T4 1.28 NG/DL (0.89-1.76); PLATELET COUNT, AUTOMATED 230 10^3/uL (150-450)
[2024-10-26 13:36] LABS: ALT/SGPT 24 U/L (7.0-40); AST/SGOT 24 U/L (<34); C REACTIVE PROTEIN QUANTITATIV < 0.50 MG/DL (<1.0); CALCIUM LEVEL 9.9 MG/DL (8.3-10.6); CARBON DIOXIDE LEVEL 33 MMOL/L (20-31); CHLORIDE LEVEL 100 MMOL/L (98-107); CHOLESTEROL LEVEL 214 MG/DL (<200); CHOLESTEROL RISK RATIO 3.92 (<5); CREATININE FOR GFR 1.49 MG/DL (0.55-1.30); GLOMERULAR FILTRATION RATE 35.7 (>39); LDL CHOLESTEROL 131.1 MG/DL (<100); NON-HDL-C 159.5 MG/DL; POTASSIUM SERUM 4.5 MMOL/L (3.5-5.1); SODIUM LEVEL 142 MMOL/L (136-145); TRIGLYCERIDES LEVEL 142 MG/DL (<150)
[2024-10-26 13:56] LABS: ESTIMATED AVERAGE GLUCOSE 117.0 MG/DL (60-110)
== END ==
LOC: M SFHCADAM 09:44
PROVIDERS: ATTEND Family Medicine
DX: M79.7 Fibromyalgia (principal); E78.5 Hyperlipidemia, unspecified; Z13.1 Encounter for screening for diabetes mellitus

== ENCOUNTER 2024-11-10 13:58 | Observation (INO) | payer MEDICARE ==
[~2024-11-10] VITALS: Ht 160 cm; Wt 92.8 kg
[2024-11-10] MEDS: NS 500 ML IV ONE (15:46)
[2024-11-10 15:59] LABS: BASO # 0.0 10^3/uL (0.0-0.2); BASO % 0.6 % (0.0-1.0); EOS # 0.2 10^3/uL (0.0-0.5); EOS % 4.4 % (0.0-3.0); LYMPH # 1.7 10^3/uL (1.5-5.0); LYMPH % 32.3 % (24.0-44.0); MONO # 0.5 10^3/uL (0.0-0.8); MONO % 9.1 % (2.0-8.0); NEUTROPHILS # 2.8 10^3/uL (1.5-8.5); NEUTROPHILS % 53.4 % (36.0-66.0); PLATELET COUNT, AUTOMATED 180 10^3/uL (150-450)
[2024-11-10 16:13] LABS: INR 0.99
[2024-11-10 16:28] LABS: CPK CREATINE PHOSPHOKINASE 88.0 U/L (34-145)
[2024-11-10 16:29] LABS: ALT/SGPT 16.0 U/L (7.0-40); AST/SGOT 23.0 U/L (<34); CALCIUM LEVEL 9.4 MG/DL (8.3-10.6); CARBON DIOXIDE LEVEL 31.0 MMOL/L (20-31); CHLORIDE LEVEL 102.0 MMOL/L (98-107); CK-MB VALUE MASS 1.3 NG/ML (<3.6); CREATININE FOR GFR 1.43 MG/DL (0.55-1.30); GLOMERULAR FILTRATION RATE 37.5 (>39); MB/CK RELATIVE INDEX 1.47 (< OR =4); POTASSIUM SERUM 4.0 MMOL/L (3.5-5.1); SODIUM LEVEL 141.0 MMOL/L (136-145)
[2024-11-10 16:31] LABS: FREE T4 1.06 NG/DL (0.89-1.76)
[2024-11-10 17:33] LABS: CK-MB VALUE MASS 1.6 NG/ML (<3.6)
[2024-11-10 17:35] LABS: CPK CREATINE PHOSPHOKINASE 88.0 U/L (34-145); MB/CK RELATIVE INDEX 1.81 (< OR =4)
[2024-11-10] MEDS: PANTOPRAZOLE 40MG VIAL IV SCH (20:23)
[2024-11-10] MEDS: FUROSEMIDE 100 MG/10 ML VIAL IV ONE (20:26)
[2024-11-10] MEDS: DOCUSATE SODIUM 100 MG CAPSULE PO SCH (20:26)
[2024-11-10] MEDS: APIXABAN 5 MG TAB PO SCH (21:29)
[2024-11-11] VITALS (16 sets, daily range): BP systolic 138–148; BP diastolic 60–89; TEMP 96.9–97.4; O2SAT 91–97
[2024-11-11] MEDS: ULTRACET TAB PO SCH (02:13)
[2024-11-11] MEDS: ACETAMINOPHEN *IV* 1,000 MG in IV 1 EA IV ONE (04:05)
[2024-11-11 07:21] LABS: PLATELET COUNT, AUTOMATED 192 10^3/uL (150-450)
[2024-11-11 07:46] LABS: CALCIUM LEVEL 9.2 MG/DL (8.3-10.6); CARBON DIOXIDE LEVEL 30.0 MMOL/L (20-31); CHLORIDE LEVEL 101.0 MMOL/L (98-107); CREATININE FOR GFR 1.51 MG/DL (0.55-1.30); GLOMERULAR FILTRATION RATE 35.2 (>39); POTASSIUM SERUM 3.8 MMOL/L (3.5-5.1); SODIUM LEVEL 142.0 MMOL/L (136-145)
[2024-11-11] MEDS ORDERED: PRAV10TA43 PO (09:16)
[2024-11-11] MEDS ORDERED: INUL2TAB PO (09:16)
[2024-11-11] MEDS ORDERED: ESTR0.1C5 VG (09:16)
[2024-11-11] MEDS ORDERED: TORS20TA2 PO (09:16)
[2024-11-11] MEDS ORDERED: RABE1TAB5 PO ×2 (09:16→13:41)
[2024-11-11] MEDS: amLODIPine 5 MG TAB PO SCH (09:19)
[2024-11-11] MEDS ORDERED: HOME MED LIST COMPLETE! XX SCH (09:20)
[2024-11-11] MEDS: FUROSEMIDE 100 MG/10 ML VIAL IV ONE (13:26)
[2024-11-11] MEDS ORDERED: AMLO1TAB24 PO (13:40)
[2024-11-11] MEDS ORDERED: ELIQ5TAB PO (13:40)
== END 2024-11-11 16:16 | disposition home or self-care (01) ==
LOC: M ED 13:58 → M ED INP 13:59 → M PCU 11-11 02:04
PROVIDERS: ADMIT Internal Medicine Nephrology; ATTEND Internal Medicine Nephrology
DX: I48.0 Paroxysmal atrial fibrillation (principal); R07.89 Other chest pain; R00.1 Bradycardia, unspecified; K21.9 Gastro-esophageal reflux disease without esophagitis; K29.70 Gastritis, unspecified, without bleeding; K29.80 Duodenitis without bleeding; N18.32 Chronic kidney disease, stage 3b; I12.9 Hypertensive chronic kidney disease with stage 1 through stage 4 chronic kidney disease, or unspecified chronic kidney disease; E87.70 Fluid overload, unspecified; R60.0 Localized edema; M79.7 Fibromyalgia; G93.32 Myalgic encephalomyelitis/chronic fatigue syndrome; G25.0 Essential tremor; R06.02 Shortness of breath; J45.909 Unspecified asthma, uncomplicated; G47.33 Obstructive sleep apnea (adult) (pediatric); D47.2 Monoclonal gammopathy; M17.0 Bilateral primary osteoarthritis of knee; R73.03 Prediabetes; N39.46 Mixed incontinence; F32.A Depression, unspecified; F33.8 Other recurrent depressive disorders; M54.2 Cervicalgia; M54.50 Low back pain, unspecified; G89.29 Other chronic pain; Z90.49 Acquired absence of other specified parts of digestive tract; Z98.890 Other specified postprocedural states; Z82.49 Family history of ischemic heart disease and other diseases of the circulatory system; Z83.3 Family history of diabetes mellitus; K90.41 Non-celiac gluten sensitivity; Z88.0 Allergy status to penicillin; Z88.2 Allergy status to sulfonamides; Z88.8 Allergy status to other drugs, medicaments and biological substances; Z88.1 Allergy status to other antibiotic agents; Z79.899 Other long term (current) drug therapy
CPT/HCPCS: 36415; 71045; 80048; 80076; 82550; 82553; 83880; 84439; 84443; 84484; 85025; 85027; 85610; 85730; 93005; 93041; 93306; 94760; 96374; 96375; 96376; 99285; G0378; J0131; J1938; J2470

== ENCOUNTER 2024-11-13 12:29 | Emergency (ER) | payer MEDICARE ==
[~2024-11-13] VITALS: Ht 160 cm; Wt 93.7 kg
[~2024-11-13 12:29] MED LIST changes: +AMLO1TAB24 PO; +ELIQ5TAB PO; +ESTR0.1C5 VG; +INUL2TAB PO; +PRAV10TA43 PO; +RABE1TAB5 PO; +TORS20TA2 PO
[2024-11-13 13:13] LABS: BASO # 0.0 10^3/uL (0.0-0.2); BASO % 0.7 % (0.0-1.0); EOS # 0.2 10^3/uL (0.0-0.5); EOS % 2.9 % (0.0-3.0); LYMPH # 1.8 10^3/uL (1.5-5.0); LYMPH % 28.9 % (24.0-44.0); MONO # 0.5 10^3/uL (0.0-0.8); MONO % 7.7 % (2.0-8.0); NEUTROPHILS # 3.7 10^3/uL (1.5-8.5); NEUTROPHILS % 59.6 % (36.0-66.0); PLATELET COUNT, AUTOMATED 205 10^3/uL (150-450)
[2024-11-13 13:26] LABS: INR 1.16
[2024-11-13 13:43] LABS: ALT/SGPT 21.0 U/L (7.0-40); AST/SGOT 29.0 U/L (<34); CALCIUM LEVEL 9.4 MG/DL (8.3-10.6); CARBON DIOXIDE LEVEL 30.0 MMOL/L (20-31); CHLORIDE LEVEL 101.0 MMOL/L (98-107); CK-MB VALUE MASS 1.7 NG/ML (<3.6); CPK CREATINE PHOSPHOKINASE 112.0 U/L (34-145); CREATININE FOR GFR 1.43 MG/DL (0.55-1.30); FREE T4 1.23 NG/DL (0.89-1.76); GLOMERULAR FILTRATION RATE 37.5 (>39); MB/CK RELATIVE INDEX 1.51 (< OR =4); POTASSIUM SERUM 4.0 MMOL/L (3.5-5.1); SODIUM LEVEL 141.0 MMOL/L (136-145)
[2024-11-13 14:54] LABS: CK-MB VALUE MASS 1.3 NG/ML (<3.6)
[2024-11-13 14:56] LABS: CPK CREATINE PHOSPHOKINASE 105.0 U/L (34-145); MB/CK RELATIVE INDEX 1.23 (< OR =4)
[2024-11-13] MEDS ORDERED: ISOVUE-370 76% 100 ML VIAL As Ordered ONE (15:02)
[2024-11-13] MEDS: NS 1,870 ML IV ONE (15:03)
[2024-11-13] MEDS: NITROGLYCERIN 0.4 MG SUBL TABLET SL PRN (16:10)
[2024-11-13 16:20] VITALS: BP 178/88
[2024-11-13 16:43] LABS: CK-MB VALUE MASS 1.7 NG/ML (<3.6)
[2024-11-13 16:46] LABS: CPK CREATINE PHOSPHOKINASE 102.0 U/L (34-145); MB/CK RELATIVE INDEX 1.66 (< OR =4)
[2024-11-13] MEDS ORDERED: CARV3.12 PO (17:46)
[2024-11-13 18:15] VITALS: BP 153/83; TEMP 97.6; O2SAT 98
== END 2024-11-13 18:34 | disposition home or self-care (01) ==
LOC: M ED 12:29
DX: R07.9 Chest pain, unspecified (principal); J84.10 Pulmonary fibrosis, unspecified; I48.91 Unspecified atrial fibrillation; K21.9 Gastro-esophageal reflux disease without esophagitis; I10 Essential (primary) hypertension; E78.5 Hyperlipidemia, unspecified; Z88.0 Allergy status to penicillin; Z88.6 Allergy status to analgesic agent; Z79.51 Long term (current) use of inhaled steroids; Z79.01 Long term (current) use of anticoagulants; Z79.4 Long term (current) use of insulin; Z79.899 Other long term (current) drug therapy
CPT/HCPCS: 36415; 71045; 71275; 80048; 80076; 82550; 82553; 83690; 84439; 84443; 84484; 85025; 85610; 93005; 93041; 94760; 99285; Q9967

== ENCOUNTER → 2024-11-15 | Outpatient (REF) | payer MEDICARE ==
[~2024-11-15] MED LIST changes: +CARV3.12 PO
[2024-11-15 18:23] LABS: CALCIUM LEVEL 9.7 MG/DL (8.3-10.6); CARBON DIOXIDE LEVEL 32.0 MMOL/L (20-31); CHLORIDE LEVEL 100.0 MMOL/L (98-107); CREATININE FOR GFR 1.45 MG/DL (0.55-1.30); GLOMERULAR FILTRATION RATE 36.9 (>39); POTASSIUM SERUM 4.2 MMOL/L (3.5-5.1); SODIUM LEVEL 140.0 MMOL/L (136-145)
== END ==
LOC: M LAB REF 14:38
PROVIDERS: ATTEND Internal Medicine Nephrology
DX: N18.31 Chronic kidney disease, stage 3a (principal)

== ENCOUNTER → 2024-11-29 | Outpatient (REF) | payer MEDICARE | LOC: M SFHCADAM 12:47 | PROVIDERS: ATTEND Family Medicine | DX: R09.89 Other specified symptoms and signs involving the circulatory and respiratory systems (principal) ==

== ENCOUNTER → 2025-01-02 | Outpatient (REF) | payer MEDICARE ==
[2025-01-02 17:51] LABS: CALCIUM LEVEL 10.2 MG/DL (8.3-10.6); CARBON DIOXIDE LEVEL 33.0 MMOL/L (20-31); CHLORIDE LEVEL 100.0 MMOL/L (98-107); CREATININE FOR GFR 1.51 MG/DL (0.55-1.30); GLOMERULAR FILTRATION RATE 35.2 (>39); POTASSIUM SERUM 4.4 MMOL/L (3.5-5.1); SODIUM LEVEL 144.0 MMOL/L (136-145)
[2025-01-02 17:53] LABS: PLATELET COUNT, AUTOMATED 256 10^3/uL (150-450)
== END ==
LOC: M SFHCADAM 12:22
PROVIDERS: ATTEND Family Medicine
DX: N18.32 Chronic kidney disease, stage 3b (principal); I12.9 Hypertensive chronic kidney disease with stage 1 through stage 4 chronic kidney disease, or unspecified chronic kidney disease

== ENCOUNTER 2025-02-09 00:44 | Emergency (ER) | payer MEDICARE ==
[~2025-02-09] VITALS: Ht 160 cm; Wt 90.0 kg
[2025-02-09 01:03] VITALS: TEMP 97.9
[2025-02-09] MEDS ORDERED: SPIR-10 PO (01:05)
[2025-02-09] MEDS ORDERED: METO1TAB32 PO (01:05)
[2025-02-09 01:23] LABS: BASO # 0.0 10^3/uL (0.0-0.2); BASO % 0.5 % (0.0-1.0); EOS # 0.2 10^3/uL (0.0-0.5); EOS % 1.9 % (0.0-3.0); LYMPH # 2.5 10^3/uL (1.5-5.0); LYMPH % 32.6 % (24.0-44.0); MONO # 0.6 10^3/uL (0.0-0.8); MONO % 7.6 % (2.0-8.0); NEUTROPHILS # 4.4 10^3/uL (1.5-8.5); NEUTROPHILS % 57.1 % (36.0-66.0); PLATELET COUNT, AUTOMATED 256 10^3/uL (150-450)
[2025-02-09 01:53] LABS: CALCIUM LEVEL 9.6 MG/DL (8.3-10.6); CARBON DIOXIDE LEVEL 32.0 MMOL/L (20-31); CHLORIDE LEVEL 98.0 MMOL/L (98-107); CK-MB VALUE MASS 2.0 NG/ML (<3.6); CREATININE FOR GFR 1.58 MG/DL (0.55-1.30); GLOMERULAR FILTRATION RATE 33.1 (>39); POTASSIUM SERUM 3.8 MMOL/L (3.5-5.1); SODIUM LEVEL 139.0 MMOL/L (136-145)
[2025-02-09 01:58] LABS: CPK CREATINE PHOSPHOKINASE 114.0 U/L (34-145); MB/CK RELATIVE INDEX 1.75 (< OR =4)
[2025-02-09 02:52] LABS: CK-MB VALUE MASS 1.7 NG/ML (<3.6)
[2025-02-09 03:14] LABS: CPK CREATINE PHOSPHOKINASE 92.0 U/L (34-145); MB/CK RELATIVE INDEX 1.84 (< OR =4)
[2025-02-09 03:38] LABS: MAGNESIUM LEVEL 2.2 MG/DL (1.8-2.4)
[2025-02-09 03:45] VITALS: BP 133/72; O2SAT 94
== END 2025-02-09 03:55 | disposition home or self-care (01) ==
LOC: EDBD 00:44 → M ED 00:44
DX: R00.2 Palpitations (principal); I44.4 Left anterior fascicular block; I10 Essential (primary) hypertension; K21.9 Gastro-esophageal reflux disease without esophagitis; E78.5 Hyperlipidemia, unspecified; Z86.79 Personal history of other diseases of the circulatory system; Z88.0 Allergy status to penicillin; Z88.8 Allergy status to other drugs, medicaments and biological substances; Z79.01 Long term (current) use of anticoagulants; Z79.52 Long term (current) use of systemic steroids; Z79.899 Other long term (current) drug therapy

== ENCOUNTER → 2025-02-16 | Outpatient (REF) | payer MEDICARE ==
[~2025-02-16] MED LIST changes: +METO1TAB32 PO; +SPIR-10 PO
[2025-02-16 17:32] LABS: CALCIUM LEVEL 9.7 MG/DL (8.3-10.6); CARBON DIOXIDE LEVEL 34.0 MMOL/L (20-31); CHLORIDE LEVEL 99.0 MMOL/L (98-107); CREATININE FOR GFR 1.55 MG/DL (0.55-1.30); GLOMERULAR FILTRATION RATE 33.9 (>39); POTASSIUM SERUM 4.3 MMOL/L (3.5-5.1); SODIUM LEVEL 140.0 MMOL/L (136-145)
== END ==
LOC: M LABDRWAD 16:44
PROVIDERS: ATTEND Internal Medicine Nephrology
DX: N18.30 Chronic kidney disease, stage 3 unspecified (principal)